=== PATIENT | female | born 1985 | race Caucasian/White ===

== ENCOUNTER 2016-07-02 15:16 | Inpatient (IN) | payer MEDICAID ==
--- NOTE | 2016-07-02 16:09 | ER Document Report ---
ED Medical Screen (RME) - General Chief Complaint: OB Problem (<20wks) Stated Complaint: LOW LEFT SIDE PELVIC PAIN Notes: 31-year-old female patient has an ultrasound that did not show IUP 2 days ago with a hCG level of 2000. She is sent here for ultrasound, hCG, wrote him evaluation and to call Dr. Heard when she is seen. She is having some pelvic discomfort more on the left. I have greeted and performed a rapid initial assessment of this patient. A comprehensive ED assessment and evaluation of the patient, analysis of test results and completion of the medical decision making process will be conducted by additional ED providers. TRAVEL OUTSIDE OF THE [place] IN LAST 30 DAYS: No - Related Data Allergies/Adverse Reactions: iodine [Iodine] Allergy (Intermediate, Verified 07/02/16 16:06) latex [Latex] Allergy (Intermediate, Verified 07/02/16 16:06) Hives ceftriaxone sodium [From Rocephin] Allergy (Mild, Verified 07/02/16 16:06) nitrofurantoin [From Macrobid] Allergy (Mild, Verified 07/02/16 16:06) nitrofurantoin macrocrystalline [From Macrobid] Allergy (Mild, Verified 16:06) Penicillins Allergy (Mild, Verified 07/02/16 16:06) metronidazole [From Flagyl] Allergy (Verified 07/02/16 16:06) Metronidazole HCl [From Flagyl] Allergy (Verified 07/02/16 16:06) Past Medical History - General Last Menstrual Period: Unknown - Past Medical History Cardiac Medical History: Reports: Hx Hypertension - during Endocrine Medical History: Reports: Hx Diabetes Mellitus Type 1 Renal/ Medical History: Denies: Hx Peritoneal Dialysis Past Surgical History: Reports: Hx Section - Immunizations Hx Diphtheria, Pertussis, Tetanus Vaccination: Yes Physical Exam - Vital signs Vitals: Temp Pulse Resp BP Pulse Ox 97.8 F 115 H 16 153/102 H 100 07/02/16 15:36 07/02/16 15:36 07/02/16 15:36 07/02/16 15:36 07/02/16 15:36 Course - Vital Signs Vital signs: Temp Pulse Resp BP Pulse Ox 97.8 F 115 H 16 153/102 H 100 07/02/16 15:36 07/02/16 15:36 07/02/16 15:36 07/02/16 15:36 07/02/16 15:36
[2016-07-02] MEDS ORDERED: DIPHENHYDRAMINE HCL 50 MG/ML VIAL IV ONE (16:11)
[2016-07-02] MEDS ORDERED: METOCLOPRAMIDE HCL INJ/PF 10 MG/2 ML SDV IV ONE (16:11)
[2016-07-02 16:56] LABS: ABSOLUTE EOSINOPHILS # (AUTO) 0.3 10^3/uL (0.0-0.6); ABSOLUTE LYMPHOCYTES (AUTO) 2.4 10^3/uL (0.5-4.7); ABSOLUTE MONOCYTES (AUTO) 0.4 10^3/uL (0.1-1.4); ABSOLUTE NEUT (AUTO) 4.6 10^3/uL (1.7-8.2); BASOPHILS % (AUTO) 0.6 % (0-2); EOSINOPHILS % (AUTO) 3.3 % (0-6); HEMATOCRIT 42.3 % (36.0-47.0); HEMOGLOBIN 14.7 g/dL (12.0-15.5); HGB HCT DIFFERENCE 1.8; LYMPHOCYTES % (AUTO) 31.1 % (13-45); MEAN CORPUSCULAR HEMOGLOBIN 31.3 pg (27.0-33.4); MEAN CORPUSCULAR HGB CONC 34.8 g/dL (32.0-36.0); MEAN CORPUSCULAR VOLUME 90 fl (80-97); MONOCYTES % (AUTO) 4.8 % (3-13); RED CELL DISTRIBUTION WIDTH 14.5 % (11.5-14.0); SEGMENTED NEUTROPHILS % (AUTO) 60.2 % (42-78); WHITE BLOOD COUNT 7.6 10^3/uL (4.0-10.5)
[2016-07-02 17:15] LABS: ALANINE AMINOTRANSFERASE 37 U/L (9-52); ALBUMIN 4.7 g/dL (3.5-5.0); ALKALINE PHOSPHATASE 83 U/L (38-126); ANION GAP 16 (5-19); ASPARTATE AMINO TRANSFERASE 22 U/L (14-36); BILIRUBIN,DIRECT 0.4 mg/dL (0.0-0.4); BILIRUBIN,TOTAL 0.7 mg/dL (0.2-1.3); BLOOD UREA NITROGEN 15 mg/dL (7-20); CALCIUM 10.5 mg/dL (8.4-10.2); CARBON DIOXIDE 28 mmol/L (22-30); CHLORIDE 100 mmol/L (98-107); CREATININE RESULT 0.67 mg/dL (0.52-1.25); GLUCOSE 84 mg/dL (75-110); POTASSIUM 4.2 mmol/L (3.6-5.0); SODIUM 143.7 mmol/L (137-145); TOTAL PROTEIN 8.3 g/dL (6.3-8.2)
[2016-07-02] MEDS ORDERED: MORPHINE SULFATE 10 MG/ML INJ IV ONE (18:39)
--- NOTE | 2016-07-02 18:57 | ER Document Report ---
ED GI/ - General Chief Complaint: OB Problem (<20wks) Stated Complaint: LOW LEFT SIDE PELVIC PAIN Notes: Patient is here because she's having abdominal pain and may have an ectopic . Patient was seen earlier this week with a quantitative hCG of about 2000 and ultrasound was not able to identify a anywhere. She has had continued increase gradually of her quantitative hCG and increasing pain and was referred in for a another evaluation and ultrasound. Patient is complaining of pain all over her entire abdomen. No nausea or vomiting or diarrhea. No fevers. By dates, patient should be about 6 weeks . TRAVEL OUTSIDE OF THE [place] IN LAST 30 DAYS: No - Related Data Allergies/Adverse Reactions: iodine [Iodine] Allergy (Intermediate, Verified 07/02/16 16:06) latex [Latex] Allergy (Intermediate, Verified 07/02/16 16:06) Hives ceftriaxone sodium [From Rocephin] Allergy (Mild, Verified 07/02/16 16:06) nitrofurantoin [From Macrobid] Allergy (Mild, Verified 07/02/16 16:06) nitrofurantoin macrocrystalline [From Macrobid] Allergy (Mild, Verified 16:06) Penicillins Allergy (Mild, Verified 07/02/16 16:06) metronidazole [From Flagyl] Allergy (Verified 07/02/16 16:06) Metronidazole HCl [From Flagyl] Allergy (Verified 07/02/16 16:06) Past Medical History - General Last Menstrual Period: Unknown - Social History Smoking Status: Unknown if Ever Smoked Family History: Reviewed & Not Pertinent Patient has suicidal ideation: No Patient has homicidal ideation: No - Past Medical History Cardiac Medical History: Reports: Hx Hypertension - during Endocrine Medical History: Reports: Hx Diabetes Mellitus Type 1 Past Surgical History: Reports: Hx Section - Immunizations Hx Diphtheria, Pertussis, Tetanus Vaccination: Yes Review of Systems - Review of Systems Notes: REVIEW OF SYSTEMS: CONSTITUTIONAL : Denies fever. EENT: Denies eye, ear, nose or mouth or throat pain or other symptoms. CARDIOVASCULAR: Denies chest pain. RESPIRATORY: Denies cough, chest congestion, or shortness of breath. GASTROINTESTINAL: See history of present illness. GENITOURINARY: Denies difficulty or painful urinating, urinary frequency, blood in urine. MUSCULOSKELETAL: Denies back or neck pain. Denies joint pain or swelling. SKIN: Denies rash or skin lesions. NEUROLOGICAL: Denies LOC or altered mental status. Denies headache. Denies sensory loss or motor deficits. ALL OTHER SYSTEMS REVIEWED AND NEGATIVE. Physical Exam - Vital signs Vitals: Temp Pulse Resp BP Pulse Ox 97.8 F 115 H 16 153/102 H 100 07/02/16 15:36 07/02/16 15:36 07/02/16 15:36 07/02/16 15:36 07/02/16 15:36 Interpretation: Hypertensive - Mild, Tachycardic - Notes Notes: PHYSICAL EXAMINATION: GENERAL: Well-appearing, in no acute distress. HEAD: Atraumatic, normocephalic. NECK: Normal range of motion, supple. LUNGS: Breath sounds clear and equal bilaterally. HEART: Regular rate and rhythm without murmurs. ABDOMEN: Soft, generalized tenderness of the lower half of the abdomen. Not guarding, however. No masses felt. BACK: No tenderness throughout entire back. EXTREMITIES: Normal range of motion without pain. SKIN: Warm, dry, no rashes. Course - Re-evaluation Re-evalutation: 07/02/16 19:[address] Heard, who will be seeing the patient with plan to take her to the OR. Pain medications ordered. Nothing by mouth. - Vital Signs Vital signs: Temp Pulse Resp BP Pulse Ox 98.9 F 104 H 18 170/94 H 98 07/02/16 18:15 07/02/16 18:15 07/02/16 18:15 07/02/16 18:15 07/02/16 18:15 - Laboratory Result Diagrams: 07/02/16 16:36 07/02/16 16:36 Laboratory results interpreted by me: 07/02/16 07/02/16 16:36 16:36 RDW 14.5 H Calcium 10.5 H Total Protein 8.3 H Beta HCG, Quant 2832.70 H 07/02/16 19:00 Increasing quantitative hCG noted. - Diagnostic Test Radiology reviewed: Image reviewed, Reports reviewed - Ultrasound shows an early ectopic around the right ovary. There is no free fluid or blood present. Discharge - Discharge Clinical Impression: Ectopic Qualifiers: Location of ectopic : ovarian Intrauterine status: without intrauterine Qualified Code(s): O00.20 - Ovarian without intrauterine Condition: Stable Disposition: ADMITTED INPATIENT Admitting Provider: [facility] Admitted: OR
[2016-07-02] MEDS ORDERED: HYDROMORPHONE HCL INJ/PF 2 MG/ML AMPULE IV ONE ×2 (19:46→21:55)
[2016-07-02] MEDS ORDERED: MORPHINE SULFATE 10 MG/ML INJ ONE (19:53)
[2016-07-02] MEDS ORDERED: ONDANSETRON HCL INJ/PF 4 MG/2 ML SDV IV PRN (19:55)
[2016-07-02] MEDS ORDERED: HYDROMORPHONE HCL INJ/PF 2 MG/ML AMPULE ONE (19:56)
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
[2016-07-02] MEDS ORDERED: GLUCAGON,HUMAN RECOMB 1 MG INJ IM PRN (21:30)
[2016-07-02] MEDS ORDERED: DEXTROSE 40% GEL 15 GM TUBE PO PRN ×2 (21:30)
[2016-07-02] MEDS ORDERED: DEXTROSE 50%-WATER 25 GM/50 ML DISP.SYRIN IV PRN ×2 (21:30)
[2016-07-02] MEDS ORDERED: INSULIN DETEMIR 100 UNIT/ML 3 ML PEN SUBCUT ONE (22:30)
[2016-07-03] MEDS ORDERED: HYDROMORPHONE HCL INJ/PF 2 MG/ML AMPULE IV ONE ×2 (01:30→09:00)
[2016-07-03] MEDS: RINGERS SOLUTION,LACTATED 1,000 ML IV PRN ×2 (01:50→21:23)
[2016-07-03] MEDS: NIFEDIPINE 30 MG TAB.ER.24 PO SCH ×2 (02:07→11:03)
[2016-07-03 07:53] LABS: ABSOLUTE EOSINOPHILS # (AUTO) 0.1 10^3/uL (0.0-0.6); ABSOLUTE LYMPHOCYTES (AUTO) 1.4 10^3/uL (0.5-4.7); ABSOLUTE MONOCYTES (AUTO) 0.2 10^3/uL (0.1-1.4); ABSOLUTE NEUT (AUTO) 5.6 10^3/uL (1.7-8.2); BASOPHILS % (AUTO) 0.7 % (0-2); EOSINOPHILS % (AUTO) 1.5 % (0-6); HEMATOCRIT 39.3 % (36.0-47.0); HEMOGLOBIN 13.6 g/dL (12.0-15.5); HGB HCT DIFFERENCE 1.5; LYMPHOCYTES % (AUTO) 19.2 % (13-45); MEAN CORPUSCULAR HEMOGLOBIN 31.6 pg (27.0-33.4); MEAN CORPUSCULAR HGB CONC 34.7 g/dL (32.0-36.0); MEAN CORPUSCULAR VOLUME 91 fl (80-97); MONOCYTES % (AUTO) 3.2 % (3-13); RED BLOOD COUNT 4.31 10^6/uL (3.72-5.28); RED CELL DISTRIBUTION WIDTH 14.1 % (11.5-14.0); SEGMENTED NEUTROPHILS % (AUTO) 75.4 % (42-78); WHITE BLOOD COUNT 7.4 10^3/uL (4.0-10.5)
--- NOTE | 2016-07-03 07:54 | PDOC CONSULTATION ---
Consultation Consult Date: 07/03/16 Attending physician:: MACY GIFFORD Consult reason:: manage HTN, hypothyroid, DM History of Present Illness Admission Date/PCP: 07/02/16 19:34 JACINTO ALICEA MD Patient complains of: ABD pain History of Present Illness: MIGUELINA CHRISTINE is a 31 year old female G 9 P 0362 (see ob history) who presents to the ER with Left lower quadrant pain. She was seen yesterday in the office and concern for ectopic reviewed and options reviewed. Pt declined MTX in the office yesterday but did have left adnexal and incisional pain. She had 9/10 pain last night but did not come in and called the office today. When she called the office today she reported that she was out running errands with her kids and felt fine. However, she called L&D at [id number] and stated her pain was worse and was instructed to come in to the ER for eval. US in the Office on wednesday with BHCG of 2061 showed no e/o intrauterine and no extrauterine and no hemoperitoneum. BHCG on 06/24 was 1041 - - - 06/29 was 2062 - - - 06/30 was 2097 and on 07/01 was 2338. CMP done in the office was normal except for hypoglycemia. TSH on 06/24 was 1.910. She is O neg. Patient has been discussed with Dr. Gifford, along with floor nursing staff. Patient has been experiencing occasional nausea and vomiting over the last day or so. No fever or chills. She is currently resting quietly, awaiting surgery for her ectopic . Laboratory results are listed in [facility] and are reviewed. X-ray summary results are listed below, with full report(s) reviewed. . Social history/personal habits: . 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 No use of alcohol tobacco or illicit drugs. Allergies/adverse reactions are listed in [facility] and are reviewed. Home medications Home medications initially autopopulated into [employer] may not accurately reflect patient's true medications, dosages, and/or frequencies. applied science and technologies dean has reconciled medications. REVIEW OF SYSTEMS: Constitutional: No fever or chills. Eyes: Wears glasses. ENT: No swallowing problems or complaints. No hearing problems or complaints. Pulmonary: No current complaints. Cardiovascular: No current complaints, including chest pain. Gastrointestinal: See history and present illness. Skin: No current complaints, including rashes. Hematologic: No unusual easy bruising or bleeding. Neurologic: No current complaints, including numbness or tingling. Musculoskeletal: No current complaints, including painful joints. Psychiatric: No current complaints, including anxiety or depression. Endocrine: No current complaints, including polyuria. Genitourinary: See history and present illness. PHYSICAL EXAMINATION: 5 feet 3 inches tall. 107.96 kg. BMI 42.2 kg/m.Temperature 98.3. Pulse 90 and regular. Blood pressure 143/92. Respirations are 18 and unlabored. 97% saturation on room air. Female floor nurse Doreen is present. is present; patient approves. Obese somewhat chronically ill-appearing female who nevertheless appears approximately her stated age. Pleasant awake alert and cooperative. No obvious distress other than somewhat anxious. No agitation. Skin is warm and dry. No grossly obvious evidence of rash in areas of skin examined. No subcutaneous nodules palpated. ENT: Hearing grossly normal to normal conversation. Tongue midline on protrusion pink and slightly tacky. Eyes: No scleral icterus. Pupils equal and reactive to light at 4 mm. [place] conjunctivae. Neck is supple and nontender to gentle active range of motion and palpation. Midline trachea. No palpable thyroid nodule mass enlargement or tenderness. Lymphatic: No palpable cervical or clavicular nodes. Neck and lymphatic exams limited by patient body habitus. Psychiatric: Reasonable insight into acute and chronic medical issues. Oriented to time location and why here. Lungs: Auscultation reveals clear and equal breath sounds bilaterally. No use of accessory respiratory muscles. Cardiovascular: Heart regular rate and rhythm, without gallop murmur or rub. No carotid or abdominal aortic bruits. No ankle or pedal edema. Faintly palpable dorsalis pedis pulses. Abdomen: soft, obese, distended with positive bowel sounds. Mild diffuse tenderness, without evidence of guarding or peritoneal signs. Unable to adequately evaluate abdomen for masses or organomegaly due to body habitus and discomfort . Extremities: Feet are warm and dry. No calf tenderness to compression. No grossly obvious visual evidence of calf swelling. Gentle manipulation of lower extremities fails to reveal any obvious evidence of injury or instability to knees hips or ankles. Neurologic: Moves upper extremities grossly normally. Patellar reflexes absent. Absent Babinski. Light touch is intact at feet. Dorsiflexion and plantarflexion of feet 5 / 5 and symmetric. Past Medical History Cardiac Medical History: Reports: Hypertension Denies: Congestive Heart Failure, DVT, Myocardial Infarction, Hyperlipidema, Pulmonary Embolism Pulmonary Medical History: Reports: None Denies: Asthma, Chronic Obstructive Pulmonary Disease (COPD) Neurological Medical History: Reports: None Denies: Hemorrhagic CVA, Ischemic CVA, Seizures Endocrine Medical History: Reports: Diabetes Mellitus Type 1, Hypothyroidism Denies: Diabetes Mellitus Type 2, Hyperthyroidism Renal/ Medical History: Reports: Other - Occasional UTI Malignancy Medical History: Reports: None GI Medical History: Denies: Cirrhosis, Gastroesophageal Reflux Disease, Hepatitis, Peptic Ulcer Disease Musculoskeltal Medical History: Reports: None Denies: Arthritis Skin Medical History: Reports: None Psychiatric Medical History: Reports: None Denies: Alcohol Dependency, Depression, General Anxiety Disorder, Substance Abuse, Tobacco Dependency Traumatic Medical History: Reports: None Hematology: Reports: None Infectious Medical History: Reports: None Denies: Hepatitis B, Hepatitis C Past Surgical History Past Surgical History: Reports: Section Social History Information Source: Patient, Emergency Med Personnel, [facility] Records Lives with: Spouse/Significant other Smoking Status: Never Smoker Frequency of Alcohol Use: None Hx Recreational Drug Use: No Drugs: None Hx Prescription Drug Abuse: No - Advance Directive Resuscitation Status: Full Code Surrogate healthcare decision maker:: Family History Family History: Reviewed & Not Pertinent Parental Family History Reviewed: Yes - uncertain health status of father. Mother with multiple health problems. Children Family History Reviewed: Yes - Child with congenital heart disease. Sibling(s) Family History Reviewed.: Yes - Sister hypothyroid. Medication/Allergy Home Medications: Insulin Aspart [Novolog Flexpen] 8 units SUBCUT WBRKFST 07/02/16 Insulin Aspart [Novolog Flexpen] 8 units SUBCUT WLUNCH 07/02/16 Insulin Aspart [Novolog Flexpen] 10 units SUBCUT WSUPPER 07/02/16 Insulin Detemir [Levemir Flextouch] 50 units SUBCUT QAM 07/02/16 Insulin Detemir [Levemir Flextouch] 60 units SUBCUT QPM 07/02/16 Levothyroxine Sodium [Synthroid 0.15 mg Tablet] 150 mcg PO QAM 07/02/16 Nifedipine [Nifedipine ER] 30 mg PO QAM 07/02/16 Nifedipine [Nifedipine ER] 30 mg PO QHS 07/02/16 Pediatric Multivit Comb #25/FA [[place]stones Multivit Chew Tab] 1 tab PO DAILY Fluconazole [Diflucan] 1 tab PO DAILY 07/04/16 Ondansetron HCl [Zofran 8 mg Tablet] 1 tab PO TID 07/04/16 Oxycodone HCl/Acetaminophen [Percocet 5-325 mg Tablet] 1 tab PO QID 07/04/16 Oxycodone HCl/Acetaminophen [Percocet 5-325 mg Tablet] 2 tab PO QID 07/04/16 Allergies/Adverse Reactions: iodine [Iodine] Allergy (Intermediate, Verified 07/02/16 16:06) latex [Latex] Allergy (Intermediate, Verified 07/02/16 16:06) Hives ceftriaxone sodium [From Rocephin] Allergy (Mild, Verified 07/02/16 16:06) nitrofurantoin [From Macrobid] Allergy (Mild, Verified 07/02/16 16:06) nitrofurantoin macrocrystalline [From Macrobid] Allergy (Mild, Verified 16:06) Penicillins Allergy (Mild, Verified 07/02/16 16:06) metronidazole [From Flagyl] Allergy (Verified 07/02/16 16:06) Metronidazole HCl [From Flagyl] Allergy (Verified 07/02/16 16:06) Physical Exam Vital Signs: Temp Pulse Resp BP Pulse Ox 98.3 F 90 18 143/92 H 97 07/03/16 04:48 07/03/16 04:48 07/03/16 04:48 07/03/16 04:48 07/03/16 04:48 Intake & Output 07/02/16 07/03/16 07/04/16 00:59 00:59 00:59 Intake Total 500 Balance 500 Results Impressions: Obstetrics Ultrasound 07/02/16 16:03 IMPRESSION: Small hypoechoic structure measured at 12.7 mm in size adjacent to the right ovary. Ectopic cannot be excluded. Followup beta HCG and ultrasound is recommended. Assessment & Plan - Diagnosis (1) HTN (hypertension) Qualifiers: Hypertension type: essential hypertension Qualified Code(s): I10 - Essential (primary) hypertension Is this a current diagnosis for this admission?: YesPlan: Resume home medications as appropriate once these have been determined and reviewed. (2) Ectopic Qualifiers: Location of ectopic : unspecified location Intrauterine status: without intrauterine Qualified Code(s): O00.90 - Unspecified ectopic without intrauterine Is this a current diagnosis for this admission?: YesPlan: Management by Dr. Gifford. (3) Hypothyroidism Qualifiers: Hypothyroidism type: unspecified Qualified Code(s): E03.9 - Hypothyroidism, unspecified Is this a current diagnosis for this admission?: YesPlan: Resume home medications as appropriate once these have been determined and reviewed. (4) Insulin dependent diabetes mellitus Is this a current diagnosis for this admission?: YesPlan: Resume home medications as appropriate once these have been determined and reviewed. Diabetic cardiac diet. Accu-Cheks with appropriate sliding scale coverage.
[2016-07-03] MEDS ORDERED: INSULIN ASPART 8 UNIT SUBCUT SCH ×2 (08:00→12:00)
[2016-07-03] MEDS ORDERED: INSULIN LISPRO 100 UNIT/ML 3 ML VIAL SUBCUT SCH ×3 (08:00→17:00)
[2016-07-03] MEDS ORDERED: BUPIVACAINE HCL 0.25 % INJ/PF (2.5 MG/1 ML) 30 ML VIAL ONE (08:50)
[2016-07-03] MEDS ORDERED: ONDANSETRON HCL INJ/PF 4 MG/2 ML SDV IV ONE (09:00)
[2016-07-03] MEDS ORDERED: MIDAZOLAM 2 MG/2 ML INJ ONE (09:26)
[2016-07-03] MEDS ORDERED: FENTANYL CITRATE INJ/PF 250 MCG/5 ML AMPULE ONE (09:26)
[2016-07-03] MEDS ORDERED: PROPOFOL INJ 200 MG/20 ML VIAL IV ONE (09:27)
[2016-07-03] MEDS ORDERED: IBUPROFEN INJ 800 MG/8 ML VIAL IV ONE (09:27)
[2016-07-03] MEDS ORDERED: METOCLOPRAMIDE HCL INJ/PF 10 MG/2 ML SDV ONE (09:45)
[2016-07-03] MEDS ORDERED: FAMOTIDINE INJ/PF 20 MG/2 ML SDV IV ONE (09:46)
[2016-07-03] MEDS ORDERED: SCOPOLAMINE HYDROBROMIDE 1.5 MG PATCH.TD72 ONE (09:46)
[2016-07-03] MEDS ORDERED: LEVOTHYROXINE SODIUM 0.15 MG TABLET PO SCH (10:00)
[2016-07-03] MEDS ORDERED: CLINDAMYCIN 900 MG/D5W RTU 50 ML IV ONE (10:33)
[2016-07-03] MEDS ORDERED: GENTAMICIN SULFATE INJ 80 MG/2 ML VIAL ONE (10:33)
[2016-07-03] MEDS ORDERED: FENTANYL CITRATE INJ/PF 100 MCG/2 ML AMPUL IV PRN ×3 (11:16)
[2016-07-03] MEDS ORDERED: MORPHINE SULFATE 10 MG/ML INJ IV PRN (11:16)
[2016-07-03] MEDS ORDERED: OXYCODONE-ACETAMINOPHEN 5-325 MG TABLET PO PRN ×2 (11:16)
[2016-07-03] MEDS ORDERED: DIPHENHYDRAMINE HCL 50 MG/ML VIAL IV PRN (11:16)
[2016-07-03] MEDS ORDERED: ONDANSETRON HCL INJ/PF 4 MG/2 ML SDV IV PRN ×2 (11:16→13:23)
[2016-07-03] MEDS ORDERED: MEPERIDINE HCL/PF INJ 25 MG/1 ML DISP.SYRIN IV PRN (11:16)
[2016-07-03] MEDS ORDERED: PROMETHAZINE HCL INJ 25 MG/1 ML VIAL IV PRN ×2 (11:16)
[2016-07-03] MEDS ORDERED: KETOROLAC TROMETHAMINE INJ/PF 30 MG/1 ML SDV ONE (12:28)
[2016-07-03] MEDS ORDERED: FENTANYL CITRATE INJ/PF 100 MCG/2 ML AMPUL ONE (12:29)
[2016-07-03] MEDS ORDERED: ACETAMINOPHEN 100 ML IV ONE (12:35)
[2016-07-03] MEDS ORDERED: INSULIN LISPRO 100 UNIT/ML 3 ML VIAL ONE ×3 (12:45→13:29)
[2016-07-03] MEDS ORDERED: PROMETHAZINE HCL INJ 25 MG/1 ML VIAL ONE (12:54)
--- NOTE | 2016-07-03 13:08 | OPERATIVE REPORT E ---
Operative Report NAME: MIGUELINA CHRISTINE : 1985 AGE: 31Y DATE OF SURGERY: ROOM: 214 PREOPERATIVE DIAGNOSIS: Right ectopic and desire for permanent sterilization with bilateral salpingectomy. POSTOPERATIVE DIAGNOSIS: Right ectopic and desire for permanent sterilization with bilateral salpingectomy. OPERATION: Laparoscopic bilateral salpingectomy with removal of right ectopic . SURGEON: ЕКАТЕРИНА MACK M.D. JOURNEYMAN MECHANIC: ROXANN ANESTHESIA: General endotracheal ESTIMATED BLOOD LOSS: 10 mL. URINE OUTPUT: 400 mL. SPECIMEN TO PATHOLOGY: Bilateral fallopian tube. The right distal tube contained the ectopic . FINDINGS: The patient had fungal changes underneath her pannus and in the vagina. She had a very thick abdominal wall and a marked amount of intraperitoneal fatty tissue. The uterus appeared normal. There was a small amount of blood in the pelvis. The left tube and ovary appeared normal. The right distal tube contained the ectopic. The right ovary appeared normal. DESCRIPTION OF PROCEDURE: After discussing risks, benefits, and alternatives of the procedure and obtaining informed consent, patient was taken to the operating room where general anesthesia was achieved. She was positioned in the dorsal lithotomy position, prepped and draped in the usual standard fashion. A Gonzalez catheter was placed. The Medikly uterine manipulator was placed for uterine manipulation. Attention was then turned to the abdomen. A 10-mm incision was placed in the superior aspect of the umbilical fold. The fascia was grasped with Nata's. The fascia was incised and the peritoneal cavity entered under direct visualization. A long Origin trocar was used and the balloon insufflated. The abdomen was insufflated. The camera was placed. There was difficulty with some intraperitoneal fat falling down over this trocar however we were initially able to place a left lower quadrant trocar through intraperitoneal fat. There was no bowel within the intraperitoneal fat. This was assured by taking the camera superior to the trocar site. Next, it was realized that the long Origin was not long enough to maintain pneumoperitoneum as the fatty tissue kept slipping over the end of it. Therefore a long straight trocar, which was about one inch longer, was called for. With this we were able to maintain an adequate pneumoperitoneum and the right lower quadrant trocar was placed under direct visualization. Each of the port sites had been premedicated with 0.25% Marcaine. Again in the right lower quadrant, the trocar went through some intraperitoneal fat but again this was traced and there was no bowel up within that. The distal right tube was grasped with grasper and a LigaSure device was used to perform the salpingectomy in the standard fashion. This was removed through the umbilical port. The camera was replaced and the salpingectomy was performed in a similar fashion on the right by elevating it above the bowel and using the LigaSure to undermine the tube and excise it with coagulation and cut. Excellent was observed at both. The pelvis was irrigated and hemostasis assured. The trocars were removed assuring that there was no bleeding through the peritoneal fat. The trocars in the right and left lower quadrants were removed and observed that there was no bleeding at either of these sites, even under low pressure. Next the abdomen was desufflated and the umbilical trocar removed. The fascia was closed at the umbilicus with the 0 Vicryl in an interrupted fashion. The skin was closed with 3-0 Monocryl in subcuticular fashion. Dermabond was placed over the right and left lower quadrant trocar sites. OpSite dressing with a 2 x 2 under it was placed at the umbilical port site. The Hulka manipulator was removed and hemostasis assured. The patient was taken out of dorsal lithotomy, extubated, and to recovery in stable condition. All sponge, needle, lap, and instrument counts were correct x2. DICTATING PHYSICIAN: ЕКАТЕРИНА MACK M.D. [id number] PHY#: [id number] ID: [id number] JOB#: [id number] ACCT: [id number] cc:ЕКАТЕРИНА MACK M.D. >
[2016-07-03] MEDS ORDERED: HYDROMORPHONE HCL INJ/PF 2 MG/ML AMPULE IV PRN ×2 (13:24→13:25)
[2016-07-03] MEDS ORDERED: OXYCODONE HCL IR 5 MG TABLET PO PRN ×2 (13:25→13:26)
[2016-07-03] MEDS ORDERED: SUCCINYLCHOLINE CHLORIDE INJ 200 MG/10 ML VIAL ONE (14:17)
[2016-07-03] MEDS ORDERED: PHENYLEPHRINE HCL INJ/PF 10 MG/1 ML SDV ONE (14:17)
[2016-07-03] MEDS ORDERED: VECURONIUM BROMIDE INJ 10 MG VIAL IV ONE (14:17)
[2016-07-03] MEDS ORDERED: NEOSTIGMINE METHYLSULFATE 10 MG/10 ML VIAL ONE (14:17)
[2016-07-03] MEDS ORDERED: DEXAMETHASONE SOD PHOSPHATE INJ 4 MG/1 ML VIAL ONE (14:17)
[2016-07-03] MEDS ORDERED: ONDANSETRON HCL INJ/PF 4 MG/2 ML SDV ONE (14:17)
[2016-07-03] MEDS ORDERED: LIDOCAINE 2% INJ-PF (20 MG/ML) 10 ML AMPUL ONE (14:17)
[2016-07-03] MEDS ORDERED: GLYCOPYRROLATE INJ 0.4 MG/2 ML VIAL ONE (14:17)
[2016-07-03] MEDS ORDERED: (PENDING PHARMACY ID) (Insulin Aspart [Novolog Flexpen] 10 UNITS) SUBCUT SCH (17:00)
[2016-07-03] MEDS ORDERED: INSULIN DETEMIR 100 UNIT/ML 3 ML PEN SUBCUT SCH (18:00)
[2016-07-03] MEDS: KETOROLAC TROMETHAMINE INJ/PF 30 MG/1 ML SDV IV SCH (21:24)
[2016-07-03] MEDS ORDERED: NIFEDIPINE 30 MG TAB.ER.24 PO SCH (22:00)
[2016-07-04] MEDS: KETOROLAC TROMETHAMINE INJ/PF 30 MG/1 ML SDV IV SCH (06:11)
[2016-07-04] MEDS ORDERED: NIFEDIPINE 30 MG TAB.ER.24 PO SCH (08:00)
[2016-07-04] MEDS ORDERED: LEVOTHYROXINE SODIUM 0.15 MG TABLET PO SCH (08:00)
[2016-07-04] MEDS ORDERED: INSULIN DETEMIR 100 UNIT/ML 3 ML PEN SUBCUT SCH (08:00)
[2016-07-04 09:04] VITALS: BP 146/90
[2016-07-04] MEDS ORDERED: LANSOPRAZOLE 30 MG TAB.RAP.DR PO ONE (09:15)
--- NOTE | 2016-07-04 09:38 | DISCHARGE SUMMARY E ---
Discharge Summary NAME: NIRMALA CHRISTINE : 1985 AGE: 31Y ADMITTED: 07/02/2016 DISCHARGED: 07/04/2016 INDICATION FOR ADMISSION: Ectopic in patient with multiple medical problems. HOSPITAL COURSE: Nirmala is a 31-year-old female who was admitted with pelvic pain and right ectopic . She had multiple looses associated with her type 1 diabetes and chronic hypertension. She desired permanent sterilization and surgical treatment for her ectopic. Over the course of the evening on the first night, internal medicine evaluated her and cleared her for surgery. She was managed by them for her diabetes, hypertension, and hypothyroidism. She was taken to the operating room on 07/03/2016 and underwent laparoscopic bilateral salpingectomy. She had a right ectopic noted at the time. Of note, fungal changes are noted under the pannus and in her vaginal region which was quite impressive. Postoperatively she was kept through the following evening to optimize glycemic control as her perioperative sugars were around 250. She, at the time of discharge, had improved glycemic control. She will be discharged home on her usual Levemir, Synthroid, and Procardia doses. By the time of discharge, she was ambulating and tolerating p.o. She had adequate pain control with oral medications and was passing flatus. DISCHARGE DIAGNOSES: 1. Right ectopic . 2. Undesired fertility with desire for permanent sterilization. 3. Vaginal candidiasis and intertrigo. 4. Chronic hypertension. 5. Type 1 diabetes. 6. Hypothyroidism. DISCHARGE MEDICATIONS: Patient will continue usual home meds. She was also given a script for Zofran 8 mg 1 p.o. t.i.d. p.r.n., #10, no refills; Percocet 1-2 p.o. 4 times a day p.r.n., #30, no refills; Motrin 800 mg 1 p.o. t.i.d. p.r.n., #30, no refills; and Diflucan 150 mg p.o. daily for 10 days. PLAN: She will follow up with me in 1 week or sooner should problems arise. She was advised no lifting over 20 pounds and pelvis rest. DICTATING PHYSICIAN: ЕКАТЕРИНА MACK M.D. [id number] PHY#: [id number] ID: [id number] JOB#: [id number] ACCT: [id number] cc:MACY GIFFORD M.D., JENNIFER M.D. >
[2016-07-04] MEDS ORDERED: FLUCONAZOLE 100 MG TABLET PO SCH (10:00)
--- NOTE | 2016-07-05 07:23 | PDOC PROGRESS REPORT ---
Subjective Progress Note for:: 07/04/16 Subjective:: The patient denies any nausea, vomiting, diarrhea, shortness of breath, dizziness, chest pain, heart palpitations, fevers, or chills. The patient has remained afebrile. Blood pressures have been in a good range. When prompted the patient voices no other concerns at this time. Physical Exam Vital Signs: Temp Pulse Resp BP Pulse Ox 97.8 F 95 18 146/90 H 96 07/04/16 08:56 07/04/16 08:56 07/04/16 08:56 07/04/16 08:56 07/04/16 08:56 Intake & Output 07/03/16 07/04/16 07/05/16 23:59 23:59 23:59 Intake Total 7650 Output Total 410 Balance 7240 General appearance: PRESENT: no acute distress, well-developed, well-nourished Head exam: PRESENT: atraumatic, normocephalic Eye exam: PRESENT: conjunctiva pink, EOMI, PERRLA. ABSENT: scleral icterus Ear exam: PRESENT: normal external ear exam Mouth exam: PRESENT: moist, tongue midline Neck exam: ABSENT: carotid bruit, JVD, lymphadenopathy, thyromegaly Respiratory exam: PRESENT: clear to auscultation rachael. ABSENT: rales, rhonchi, wheezes Cardiovascular exam: PRESENT: RRR. ABSENT: diastolic murmur, rubs, systolic murmur Pulses: PRESENT: normal dorsalis pedis pul Vascular exam: PRESENT: normal capillary refill GI/Abdominal exam: PRESENT: normal bowel sounds, soft. ABSENT: distended, guarding, mass, organolmegaly, rebound, tenderness Rectal exam: PRESENT: deferred Extremities exam: PRESENT: full ROM. ABSENT: calf tenderness, clubbing, pedal edema Neurological exam: PRESENT: alert, awake, oriented to person, oriented to place , oriented to time, oriented to situation, CN II-XII grossly intact. ABSENT: motor sensory deficit Psychiatric exam: PRESENT: appropriate affect, normal mood. ABSENT: homicidal ideation, suicidal ideation Skin exam: PRESENT: dry, intact, warm. ABSENT: cyanosis, rash Results Laboratory Results: 07/03/16 07:39 Impressions: Obstetrics Ultrasound 07/02/16 16:03 IMPRESSION: Small hypoechoic structure measured at 12.7 mm in size adjacent to the right ovary. Ectopic cannot be excluded. Followup beta HCG and ultrasound is recommended. Assessment & Plan - Diagnosis (1) Ectopic Qualifiers: Location of ectopic : unspecified location Intrauterine status: without intrauterine Qualified Code(s): O00.90 - Unspecified ectopic without intrauterine Is this a current diagnosis for this admission?: YesPlan: Management as per CHANGE CONSULTANT (2) HTN (hypertension) Qualifiers: Hypertension type: essential hypertension Qualified Code(s): I10 - Essential (primary) hypertension Is this a current diagnosis for this admission?: YesPlan: Habit in a good range will continue current medications (3) Hypothyroidism Qualifiers: Hypothyroidism type: unspecified Qualified Code(s): E03.9 - Hypothyroidism, unspecified Is this a current diagnosis for this admission?: YesPlan: Will continue home medications. (4) Insulin dependent diabetes mellitus Is this a current diagnosis for this admission?: YesPlan: De León Kalyani as well as sliding scale coverage (5) Obesity Qualifiers: Obesity type: due to excess calories Obesity severity: morbid Qualified Code(s): E66.01 - Morbid (severe) obesity due to excess calories Is this a current diagnosis for this admission?: Yes - Time Time Spent with patient: 15-24 minutes Medications reviewed and adjusted accordingly: Yes Anticipated discharge: Home Within: Other
== END 2016-07-04 09:20 | disposition home or self-care (01) | DRG 777 ==
LOC: ER 15:16 → EH 19:34 → 2S 07-03 00:51
PROVIDERS: ADMIT Specialist; ATTEND Specialist
PROC: 10T24ZZ Resection of Products of Conception, Ectopic, Percutaneous Endoscopic Approach (ICD-10-PCS; 2016-07-03)
PROC: 0UB74ZZ Excision of Bilateral Fallopian Tubes, Percutaneous Endoscopic Approach (ICD-10-PCS; principal; 2016-07-03 10:30)
DX: O00.90 Unspecified ectopic pregnancy without intrauterine pregnancy (principal); Z68.41 Body mass index [BMI] 40.0-44.9, adult; O24.011 Pre-existing type 1 diabetes mellitus, in pregnancy, first trimester; O98.811 Other maternal infectious and parasitic diseases complicating pregnancy, first trimester; O34.211 Maternal care for low transverse scar from previous cesarean delivery; O99.281 Endocrine, nutritional and metabolic diseases complicating pregnancy, first trimester; O99.211 Obesity complicating pregnancy, first trimester; N85.8 Other specified noninflammatory disorders of uterus; E03.9 Hypothyroidism, unspecified; E66.01 Morbid (severe) obesity due to excess calories; E10.9 Type 1 diabetes mellitus without complications; B37.3 Candidiasis of vulva and vagina; L30.4 Erythema intertrigo; Z79.4 Long term (current) use of insulin; Z3A.01 Less than 8 weeks gestation of pregnancy; Z30.2 Encounter for sterilization
CPT/HCPCS: 36415; 76817; 80053; 82962; 840; 84702; 85025; 86900; 86901; 88302; 88305; 96374; 96375; 99285; J0131; J0330; J1100; J1170; J1200; J1580; J1741; J1815; J1885; J2250; J2270; J2370; J2405; J2550; J2704; J2765; J3010; J3490; J7120; S0028

== ENCOUNTER 2016-10-16 13:43 | Emergency (ER) | payer MEDICAID ==
--- NOTE | 2016-10-16 15:06 | ER Document Report ---
ED Medical Screen (RME) - General Chief Complaint: Abnormal Lab Results Stated Complaint: ABNORMAL LABS Time Seen by Provider: 10/16/16 14:59 Mode of Arrival: Ambulatory Information source: Patient Notes: This is a 31-year-old female with a history of hypertension, diabetes and hypothyroidism who was referred to the emergency room for abnormal labs. The patient underwent preoperative labs for a hysterectomy (scheduled [facility]) and she was called to the ER for a potassium of 6.1. Patient recently had her lisinopril increased. Patient denies any fever, chills, nausea vomiting. Patient denies any chest pain or abdominal pain. TRAVEL OUTSIDE OF THE [place] IN LAST 30 DAYS: No - HPI Onset: Just prior to arrival Onset/Duration: Sudden Quality of pain: No pain Severity: None Pain Level: Denies Associated Symptoms: None Exacerbated by: Denies Relieved by: Supine Similar symptoms previously: No Recently seen / treated by doctor: No - Related Data Smoking: Non-smoker Frequency of alcohol use: None Drug Abuse: None Allergies/Adverse Reactions: iodine [Iodine] Allergy (Intermediate, Verified 10/16/16 13:48) latex [Latex] Allergy (Intermediate, Verified 10/16/16 13:48) Hives ceftriaxone sodium [From Rocephin] Allergy (Mild, Verified 10/16/16 13:48) nitrofurantoin [From Macrobid] Allergy (Mild, Verified 10/16/16 13:48) nitrofurantoin macrocrystalline [From Macrobid] Allergy (Mild, Verified 13:48) Penicillins Allergy (Mild, Verified 10/16/16 13:48) metronidazole [From Flagyl] Allergy (Verified 10/16/16 13:48) Metronidazole HCl [From Flagyl] Allergy (Verified 10/16/16 13:48) Past Medical History - General Information source: Patient - Social History Cigarette use (# per day): No Chew tobacco use (# tins/day): No Frequency of alcohol use: None Drug Abuse: None Lives with: Family Family history: Reviewed & Not Pertinent - Past Medical History Cardiac Medical History: Reports: Hx Hypertension Denies: Hx Atrial Fibrillation, Hx Congestive Heart Failure, Hx Coronary Artery Disease, Hx DVT, Hx Heart Attack, Hx Hypercholesterolemia, Hx Peripheral Vascular Disease, Hx Pulmonary Embolism, Hx Heart Murmur Pulmonary Medical History: Denies: Hx Asthma, Hx COPD Neurological Medical History: Denies: Hx Seizures Endocrine Medical History: Reports: Hx Diabetes Mellitus Type 1, Hx Hypothyroidism - 2010. Denies: Hx Diabetes Mellitus Type 2, Hx Graves' Disease , Hx Hyperthyroidism Renal/ Medical History: Denies: Hx Ovarian Cysts, Hx Peritoneal Dialysis, Hx Pelvic Inflammatory Disease Malignancy Medical History: Denies: Hx Breast Cancer, Hx Cervical Cancer, Hx Ovarian Cancer GI Medical History: Denies: Hx Cirrhosis, Hx Gastroesophageal Reflux Disease, Hx Hepatitis Musculoskeltal Medical History: Denies Hx Arthritis Psychiatric Medical History: Reports: Hx Depression - post - , Hx Post Traumatic Stress Disorder - NICU with daughter 2014 Denies: Hx Bipolar Disorder, Hx Schizophrenia Infectious Medical History: Denies: Hx Hepatitis Past Surgical History: Reports: Hx Section. Denies: Hx Appendectomy, Hx Bowel Surgery, Hx Cholecystectomy, Hx Coronary Artery Bypass Graft, Hx Gastric Bypass Surgery, Hx Herniorrhaphy, Hx Hysterectomy, Hx Mastectomy, Hx Pacemaker, Hx Tonsillectomy, Hx Tubal Ligation - Immunizations Hx Diphtheria, Pertussis, Tetanus Vaccination: Yes Review of Systems - Review of Systems Constitutional: denies: Chills, Fever EENT: No symptoms reported Cardiovascular: No symptoms reported Respiratory: No symptoms reported Gastrointestinal: No symptoms reported Genitourinary: No symptoms reported Female Genitourinary: No symptoms reported Musculoskeletal: No symptoms reported Skin: No symptoms reported Hematologic/Lymphatic: No symptoms reported Neurological/Psychological: No symptoms reported Physical Exam - Vital signs Vitals: Temp Pulse Resp BP Pulse Ox 98.9 F 114 H 16 151/85 H 98 10/16/16 13:48 10/16/16 13:48 10/16/16 13:48 10/16/16 13:48 10/16/16 13:48 Notes: Physical exam: GENERAL: 31-year-old female, alert and oriented 3, no acute distress HEAD: Atraumatic, normocephalic. EYES: Pupils equal round and reactive to light, extraocular movements intact, sclera anicteric, conjunctiva are normal. ENT:Moist mucous membranes. NECK: Normal range of motion, supple LUNGS: Breath sounds clear to auscultation bilaterally and equal. HEART: Regular rate and rhythm without murmurs, rubs or gallops. ABDOMEN: Soft, normoactive bowel sounds. No tenderness to palpation. No guarding, no rebound. No masses appreciated. EXTREMITIES: Normal range of motion, no pitting or edema. No clubbing or cyanosis. NEUROLOGICAL: Cranial nerves II through XII grossly intact. Normal speech, normal gait. PSYCH: Normal mood, normal affect. SKIN: Warm, Dry, normal turgor, no rashes or lesions noted. I discussed the patient's lab work with Dr. Cruz. Patient is scheduled for an outpatient hysterectomy. She does have type 1 diabetes as well as hypertension and Dr. Cruz had increased her lisinopril recently to better control her blood pressure. There was concern about a lab revealing hyperkalemia, so we have repeated those labs today and the potassium was 4.9. Patient's renal function is normal at this point. The plan will be to continue the lisinopril as prescribed by Dr. Cruz. I did let the patient knows that her sugar is high. She states that she had eaten right before she came here and just left quickly. She will spike from time to time this time and will cover herself. Other than that, the patient states she feels fine she will follow-up with Dr. Cruz. Dr. Cruz has requested that when the patient gets her type and screen C 72 hours before the procedure) that she would like the patient to have the automobile glass technician also order a CMP. Course - Vital Signs Vital signs: Temp Pulse Resp BP Pulse Ox 98.9 F 114 H 12 151/85 H 98 10/16/16 13:48 10/16/16 13:48 10/16/16 14:54 10/16/16 13:48 10/16/16 13:48 - Laboratory Result Diagrams: 10/16/16 15:25 10/16/16 15:25 Laboratory results interpreted by me: 10/16/16 15:25 Sodium 135.9 L Carbon Dioxide 20 L Glucose 444 H* Doctor's Discharge - Discharge Clinical Impression: Hyperkalemia resolved, Hyperglycemia Condition: Stable Disposition: HOME, SELF-CARE Additional Instructions: As we discussed, your kidney function (BUN and creatinine) was normal and your potassium was good (4.9). Your sugar was high at 444: Probably your sugar as you normally would. Plate close attention to the sugar. When you go for your blood work prior to the procedure (the type and screen which can normally be done only 72 hours before the procedure), tell them that Dr. Cruz also wanted a repeat CMP so that they can adjust can check the potassium and kidney function. I did speak to Dr. Cruz and I let her know what the results of the labs are today. Return to the ER for any problems.
[2016-10-16 15:43] LABS: ABSOLUTE EOSINOPHILS # (AUTO) 0.2 10^3/uL (0.0-0.6); ABSOLUTE LYMPHOCYTES (AUTO) 1.9 10^3/uL (0.5-4.7); ABSOLUTE MONOCYTES (AUTO) 0.4 10^3/uL (0.1-1.4); ABSOLUTE NEUT (AUTO) 4.3 10^3/uL (1.7-8.2); BASOPHILS % (AUTO) 0.4 % (0-2); EOSINOPHILS % (AUTO) 2.5 % (0-6); HEMATOCRIT 39.9 % (36.0-47.0); HEMOGLOBIN 13.6 g/dL (12.0-15.5); HGB HCT DIFFERENCE 0.9; LYMPHOCYTES % (AUTO) 28.1 % (13-45); MEAN CORPUSCULAR HEMOGLOBIN 31.2 pg (27.0-33.4); MEAN CORPUSCULAR HGB CONC 34.2 g/dL (32.0-36.0); MEAN CORPUSCULAR VOLUME 92 fl (80-97); MONOCYTES % (AUTO) 5.6 % (3-13); RED BLOOD COUNT 4.36 10^6/uL (3.72-5.28); RED CELL DISTRIBUTION WIDTH 13.6 % (11.5-14.0); SEGMENTED NEUTROPHILS % (AUTO) 63.4 % (42-78); WHITE BLOOD COUNT 6.8 10^3/uL (4.0-10.5)
[2016-10-16 15:57] LABS: ALANINE AMINOTRANSFERASE 35 U/L (9-52); ALBUMIN 4.2 g/dL (3.5-5.0); ALKALINE PHOSPHATASE 100 U/L (38-126); ANION GAP 14 (5-19); ASPARTATE AMINO TRANSFERASE 15 U/L (14-36); BILIRUBIN,DIRECT 0.4 mg/dL (0.0-0.4); BILIRUBIN,TOTAL 0.6 mg/dL (0.2-1.3); BLOOD UREA NITROGEN 14 mg/dL (7-20); CALCIUM 9.5 mg/dL (8.4-10.2); CARBON DIOXIDE 20 mmol/L (22-30); CHLORIDE 102 mmol/L (98-107); CREATININE RESULT 0.67 mg/dL (0.52-1.25); SODIUM 135.9 mmol/L (137-145); TOTAL PROTEIN 7.3 g/dL (6.3-8.2)
[2016-10-16 16:06] LABS: POTASSIUM 4.9 mmol/L (3.6-5.0)
[2016-10-16 16:09] LABS: GLUCOSE 444 mg/dL (75-110)
[2016-10-16 16:39] VITALS: BP 130/79
== END 2016-10-16 16:50 | disposition home or self-care (01) ==
LOC: ER 13:43
DX: E10.65 Type 1 diabetes mellitus with hyperglycemia (principal); I10 Essential (primary) hypertension; Z79.899 Other long term (current) drug therapy; Z91.040 Latex allergy status; Z88.1 Allergy status to other antibiotic agents; Z88.0 Allergy status to penicillin
CPT/HCPCS: 36415; 80053; 85025; 99283

== ENCOUNTER → 2016-10-21 | Outpatient (CLI) | payer MEDICAID | LOC: OD 09:57 | PROVIDERS: ATTEND Emergency Medicine | DX: Z53.9 Procedure and treatment not carried out, unspecified reason (principal) ==

== ENCOUNTER 2016-10-22 07:22 | Inpatient (IN) | payer MEDICAID ==
[2016-10-16 10:36] LABS: HEMATOCRIT 39.8 % (36.0-47.0); HEMOGLOBIN 13.8 g/dL (12.0-15.5); HGB HCT DIFFERENCE 1.6; MEAN CORPUSCULAR HEMOGLOBIN 31.3 pg (27.0-33.4); MEAN CORPUSCULAR HGB CONC 34.6 g/dL (32.0-36.0); MEAN CORPUSCULAR VOLUME 91 fl (80-97); RED CELL DISTRIBUTION WIDTH 14.3 % (11.5-14.0); WHITE BLOOD COUNT 6.8 10^3/uL (4.0-10.5)
[2016-10-16 10:42] LABS: APPEARANCE,URINE CLEAR; BILIRUBIN,URINE NEGATIVE (NEGATIVE); GLUCOSE, URINE >=500 mg/dL (NEGATIVE); KETONES,URINE TRACE mg/dL (NEGATIVE); LEUKOCYTE ESTERASE,URINE NEGATIVE (NEGATIVE); NITRITE,URINE NEGATIVE (NEGATIVE); PROTEIN,URINE NEGATIVE (NEGATIVE); URINE SPECIFIC GRAVITY 1.029; UROBILINOGEN,URINE NEGATIVE mg/dL (<2.0)
[2016-10-16 10:51] LABS: ALANINE AMINOTRANSFERASE 36 U/L (9-52); ALBUMIN 4.4 g/dL (3.5-5.0); ALKALINE PHOSPHATASE 108 U/L (38-126); ANION GAP 12 (5-19); ASPARTATE AMINO TRANSFERASE 18 U/L (14-36); BILIRUBIN,DIRECT 0.4 mg/dL (0.0-0.4); BILIRUBIN,TOTAL 0.7 mg/dL (0.2-1.3); BLOOD UREA NITROGEN 16 mg/dL (7-20); CALCIUM 9.9 mg/dL (8.4-10.2); CARBON DIOXIDE 22 mmol/L (22-30); CHLORIDE 102 mmol/L (98-107); CREATININE RESULT 0.76 mg/dL (0.52-1.25); GLUCOSE 381 mg/dL (75-110); SODIUM 136.4 mmol/L (137-145); TOTAL PROTEIN 7.8 g/dL (6.3-8.2)
[2016-10-16 11:26] LABS: POTASSIUM 6.1 mmol/L (3.6-5.0)
[~2016-10-22 07:22] MED LIST: CLINDAMYCIN 900 MG/D5W RTU 50 ML IV PRN; GENTAMICIN SULFATE 120 MG in DEXTROSE 5%-WATER 100 ML IV PRN; GENTAMICIN SULFATE/PF INJ 20 MG/2 ML VIAL IV PRN; LIDOCAINE 0.5% INJ-PF (5 MG/ML) 50 ML SDV INJ PRN; NORMAL SALINE 1000 ML 1,000 ML IV PRN
[2016-10-22] MEDS ORDERED: PROPOFOL INJ 200 MG/20 ML VIAL IV ONE (08:19)
[2016-10-22] MEDS ORDERED: FENTANYL CITRATE INJ/PF 250 MCG/5 ML AMPULE ONE (08:19)
[2016-10-22] MEDS ORDERED: MIDAZOLAM 2 MG/2 ML INJ ONE (08:19)
[2016-10-22] MEDS ORDERED: MORPHINE SULFATE 10 MG/ML INJ ONE (08:19)
[2016-10-22] MEDS ORDERED: ACETAMINOPHEN 100 ML IV ONE (08:19)
[2016-10-22 08:56] LABS: POTASSIUM 5.6 mmol/L (3.6-5.0)
[2016-10-22] MEDS ORDERED: METOCLOPRAMIDE HCL INJ/PF 10 MG/2 ML SDV ONE (09:01)
[2016-10-22] MEDS ORDERED: FAMOTIDINE INJ/PF 20 MG/2 ML SDV IV ONE (09:01)
[2016-10-22] MEDS ORDERED: SCOPOLAMINE HYDROBROMIDE 1.5 MG PATCH.TD72 TD ONE (10:00)
[2016-10-22] MEDS ORDERED: INSULIN LISPRO 100 UNIT/ML 3 ML VIAL SUBCUT ONE ×2 (10:00→16:15)
[2016-10-22] MEDS ORDERED: RINGERS SOLUTION,LACTATED 500 ML IV ONE (10:00)
[2016-10-22] MEDS ORDERED: NORMAL SALINE 500 ML IV ONE (10:00)
[2016-10-22] MEDS ORDERED: ONDANSETRON HCL INJ/PF 4 MG/2 ML SDV ONE (10:12)
[2016-10-22] MEDS ORDERED: NEOSTIGMINE METHYLSULFATE 10 MG/10 ML VIAL ONE (10:12)
[2016-10-22] MEDS ORDERED: ROCURONIUM BROMIDE INJ 50 MG/5 ML VIAL IV ONE (10:12)
[2016-10-22] MEDS ORDERED: PHENYLEPHRINE HCL INJ/PF 10 MG/1 ML SDV ONE (10:12)
[2016-10-22] MEDS ORDERED: GLYCOPYRROLATE INJ 0.4 MG/2 ML VIAL ONE (10:12)
[2016-10-22] MEDS ORDERED: SUCCINYLCHOLINE CHLORIDE INJ 200 MG/10 ML VIAL ONE (10:12)
[2016-10-22] MEDS ORDERED: DEXAMETHASONE SOD PHOSPHATE INJ 4 MG/1 ML VIAL ONE (10:12)
[2016-10-22 10:21] LABS: ANION GAP 11 (5-19); BLOOD UREA NITROGEN 16 mg/dL (7-20); CALCIUM 9.3 mg/dL (8.4-10.2); CARBON DIOXIDE 21 mmol/L (22-30); CHLORIDE 103 mmol/L (98-107); CREATININE RESULT 0.69 mg/dL (0.52-1.25); GLUCOSE 250 mg/dL (75-110); POTASSIUM 5.7 mmol/L (3.6-5.0); SODIUM 135.3 mmol/L (137-145)
[2016-10-22] MEDS ORDERED: ALBUTEROL SULFATE 0.083% NEB 2.5 MG/3 ML AMPUL NEB ONE (10:36)
[2016-10-22] MEDS ORDERED: INSULIN REG, HUMAN 100 UNIT/ML 3 ML VIAL (PYX) ONE (10:37)
[2016-10-22] MEDS ORDERED: DEXTROSE 50%-WATER 25 GM/50 ML DISP.SYRIN IV ONE (10:37)
[2016-10-22] MEDS ORDERED: BUPIVACAINE INJ/PF LIPOSOME/PF 266 MG/20 ML SDV ONE (10:50)
[2016-10-22] MEDS ORDERED: BUPIVACAINE HCL 0.25 % INJ/PF (2.5 MG/1 ML) 30 ML VIAL ONE (10:50)
[2016-10-22] MEDS ORDERED: MORPHINE SULFATE 10 MG/ML INJ IV PRN (12:36)
[2016-10-22] MEDS ORDERED: MEPERIDINE HCL/PF INJ 25 MG/1 ML DISP.SYRIN IV PRN (12:36)
[2016-10-22] MEDS ORDERED: FENTANYL CITRATE INJ/PF 100 MCG/2 ML AMPUL IV PRN ×3 (12:36)
[2016-10-22] MEDS ORDERED: PROMETHAZINE HCL INJ 25 MG/1 ML VIAL IV PRN ×2 (12:36)
[2016-10-22] MEDS ORDERED: DIPHENHYDRAMINE HCL 50 MG/ML VIAL IV PRN (12:36)
[2016-10-22] MEDS ORDERED: METHYLENE BLUE 50 MG/10 ML AMPULE ONE (13:18)
--- NOTE | 2016-10-22 13:24 | EKG REPORT ---
SEVERITY:- NORMAL ECG - SINUS RHYTHM : Confirmed by: Yandy Baird 22-Oct-2016 13:23:39
[2016-10-22] MEDS ORDERED: MICROFIBRILLAR COLLAGEN 1 GM PACK ONE (13:30)
[2016-10-22] MEDS ORDERED: IBUPROFEN INJ 800 MG/8 ML VIAL IV ONE (14:09)
[2016-10-22] MEDS ORDERED: INSULIN LISPRO 100 UNIT/ML 3 ML VIAL ONE ×2 (14:50→16:44)
[2016-10-22] MEDS: FENTANYL CITRATE INJ/PF 100 MCG/2 ML AMPUL ONE ×2 (14:50→15:00)
[2016-10-22] MEDS ORDERED: HYDROMORPHONE HCL INJ/PF 2 MG/ML AMPULE ONE (15:22)
[2016-10-22] MEDS ORDERED: OXYTOCIN/NORMAL SALINE 20 UNIT/1,000 ML RTUINJ INJ PRN (15:47)
--- NOTE | 2016-10-22 15:47 | OPERATIVE REPORT E ---
Operative Report NAME: MIGUELINA CHRISTINE : 1985 AGE: 31Y DATE OF SURGERY: 10/22/2016 ROOM: OR PREOPERATIVE DIAGNOSES: 1. Abnormal bleeding and pelvic pain. 2. Recurrent panniculitis. POSTOPERATIVE DIAGNOSES: 1. Abnormal bleeding and pelvic pain. 2. Recurrent panniculitis. OPERATION PERFORMED: Total abdominal hysterectomy with mini-panniculectomy and cystoscopy. SURGEON: ЕКАТЕРИНА MACK M.D. [employer] SUPERVISOR: Dr. Heard. FINDINGS: Boggy uterus with a few bladder adhesions. Surgically absent fallopian tubes. There were normal appearing ovaries. The ureters were patent bilaterally at the end of the procedure. Bladder was intact without any evidence of damage from surgery. Of note, there had a fine crack under her pannus. Prior to this, the patient had had recurrent fungal infections. SPECIMENS TO PATHOLOGY: 1. Uterus. 2. The redundant subcutaneous fat tissue was discarded. ESTIMATED BLOOD LOSS: Two-hundred mL. DESCRIPTION OF PROCEDURE: After discussing risks, benefits, and alternatives of the procedure and obtaining informed consent, patient was taken to the operating room where general anesthesia was achieved. She was positioned in the dorsal supine position. The pannus was taped back and the abdomen and vagina were prepped and draped in the usual standard fashion after placing Gonzalez catheter. An elliptical section of the pannus was excised in the lower abdomen. This included the area of skin where it had been chronically cracked. The incision was carried down with cautery to the level of the fascia. The tissue was discarded and hemostasis achieved. Fascial incision was made in the form of a Pfannenstiel skin incision and the abdomen was entered in layers in the standard fashion. The bowel was packed away with moistened laparotomy sponges and the patient was placed in Trendelenburg. A [place] retractor was placed. The uterus was grasped with Lolis clamps. The round ligaments were each suture ligated and tagged with 0 Monocryl. The LigaSure Impact device was used to interrupt the round ligaments on either side. Bladder flap was created using a combination of sharp and blunt dissection. The utero-ovarian pedicles were isolated and coagulated with LigaSure Impact device. The uterine arteries were skeletonized. The uterine arteries were coagulated and cut with the LigaSure Impact device. The Zeppelin clamp was used to clamp the uterosacral ligaments and cervical branch of uterine artery on each side. The uterosacral ligaments were cut, suture ligated and tagged. A Deisi clamp was then placed immediately inferior to the cervix after ascertaining that the bladder had been taken down adequately. This was done on either side and the specimen was excised. The vaginal cuff angles were suture ligated with 0 Vicryl and tagged. The cuff that was in between this area was closed with [id number] of 0 Monocryl. An area of oozing was noted near the left ovary and hemostasis was achieved with 3-0 Vicryl. Excellent hemostasis was then observed. The cavity was irrigated. After assuring hemostasis, Avastin powder was placed. The laparotomy sponges were removed. The peritoneum was closed with 2-0 Vicryl in a pursestring fashion. The rectus muscles were loosely reapproximated with interrupted sutures of 2-0 Vicryl. Subfascial spaces were inspected and hemostasis assured. Fascia was closed with #1 Vicryl. The subcutaneous spaces were irrigated and the skin on the mons pubis was undermined slightly to allow for reapproximation of the subcutaneous spaces with 3-0 plain gut. During this time, the pannus that had been retracted was released. The skin was closed in a subcuticular fashion with 4-0 Monocryl. A long ERIKA dressing was placed to adequately cover the wound in this patient with type 1 diabetes and recurrent panniculitis. The cystoscopy was performed and ureters were patent. The patient was extubated and taken to recovery in stable condition. All sponge, needle, lap, and instrument counts were correct x2. DICTATING PHYSICIAN: ЕКАТЕРИНА MACK M.D. [id number] PHY#: [id number] ID: [id number] JOB#: [id number] ACCT: [id number] cc:ЕКАТЕРИНА AMCK M.D. > MTDD
[2016-10-22] MEDS ORDERED: RINGERS SOLUTION,LACTATED 1,000 ML IV SCH (16:00)
[2016-10-22] MEDS ORDERED: ACETAMINOPHEN 325 MG TABLET PO PRN (16:00)
[2016-10-22] MEDS ORDERED: PROMETHAZINE HCL INJ 25 MG/1 ML VIAL IM PRN (16:00)
[2016-10-22] MEDS ORDERED: DIPH/PERTUSS(ACELL)/TETANUS VAC/PF 0.5 ML SYR (>=10YO) IM PRN (16:00)
[2016-10-22] MEDS ORDERED: OXYCODONE-ACETAMINOPHEN 5-325 MG TABLET PO PRN ×2 (16:00)
[2016-10-22] MEDS ORDERED: MEASLES,MUMPS&RUBELLA VACC/PF 0.5 ML VIAL SUBCUT PRN (16:00)
[2016-10-22] MEDS ORDERED: SIMETHICONE 80 MG TAB.CHEW PO PRN (16:00)
[2016-10-22] MEDS ORDERED: HYDROMORPHONE HCL INJ/PF 2 MG/ML AMPULE IV PRN (16:00)
[2016-10-22] MEDS ORDERED: INSULIN ASPART 8 UNIT SUBCUT SCH (17:00)
[2016-10-22] MEDS: HYDROMORPHONE HCL INJ/PF 2 MG/ML AMPULE INJ PRN ×3 (17:16→23:22)
[2016-10-22] MEDS ORDERED: NORMAL SALINE 1000 ML 1,000 ML IV PRN (17:56)
--- NOTE | 2016-10-22 17:58 | PDOC CONSULTATION ---
Consultation Consult Date: 10/22/16 Attending physician:: ЕКАТЕРИНА MACK Consult reason:: medical management of her diabetes, HTN, hypothyroidism History of Present Illness Admission Date/PCP: 10/22/16 07:22 JACINTO ALICEA MD Patient complains of: abnormal bleeding and menstrual pain History of Present Illness: MIGUELINA CHRISTINE is a 31 year old female with long complicated wireless cellular technician history including but not limited to tubal ligation after ectopic and today's elective open hysterectomy due to DUB and menometrorrhagia. She has type 1 DM, insulin dependent first diagnosed at age of 14, previously seen by endocrinology but fired from that practice for reasons that aren't entirely clear to me, long standing HTN and hypothyroidism all of which have been managed by her OB as an outpt. we were consulted to help manage these medical problems while inpatient and postoperatively. she reports no neuropathy and no complications of renal disease or eye disease from her HTN or DM. she reports labile blood sugars that were well controlled just prior to surgery on levemir 30U in am and 28U HS with SSI of usually 5-8U premeal giving CBGs ranging 84-125. she thinks er last A1c was <9. she cannot remember her last TSH but when last checked here in 2014 was 18.7. Past Medical History Cardiac Medical History: Reports: Hypertension Denies: Atrial Fibrillation, Congestive Heart Failure, Coronary Artery Disease, DVT, Myocardial Infarction, Hyperlipidema, Peripheral Vascular Disease , Pulmonary Embolism, Heart Murmur Pulmonary Medical History: Denies: Asthma, Chronic Obstructive Pulmonary Disease (COPD) Neurological Medical History: Denies: Seizures Endocrine Medical History: Reports: Diabetes Mellitus Type 1, Hypothyroidism - 2009 Denies: Diabetes Mellitus Type 2, Hyperthyroidism Malignancy Medical History: Denies: Breast Cancer, Cervical Cancer, Ovarian Cancer GI Medical History: Denies: Cirrhosis, Gastroesophageal Reflux Disease, Hepatitis Musculoskeltal Medical History: Denies: Arthritis Psychiatric Medical History: Reports: Depression - post - , Post Traumatic Stress Disorder - NICU with daughter 2014 Denies: Bipolar Disorder Past Surgical History Past Surgical History: Reports: Section, Tubal Ligation Denies: Appendectomy, Cholecystectomy, Coronary Artery Bypass Graft, Gastric Bypass Surgery, Herniorrhaphy, Hysterectomy, Mastectomy, Pacemaker, Tonsillectomy Social History Information Source: Patient Smoking Status: Never Smoker Frequency of Alcohol Use: None Hx Recreational Drug Use: No Drugs: None Hx Prescription Drug Abuse: No - Advance Directive Resuscitation Status: Full Code Family History Family History: Reviewed & Not Pertinent - did not know her biologic parents Parental Family History Reviewed: Yes Children Family History Reviewed: Yes Sibling(s) Family History Reviewed.: Yes Medication/Allergy Home Medications: Insulin Aspart [Novolog Flexpen] 8 units SUBCUT WBRKFST 07/02/16 Insulin Aspart [Novolog Flexpen] 8 units SUBCUT WLUNCH 07/02/16 Insulin Aspart [Novolog Flexpen] 8 units SUBCUT WSUPPER 07/02/16 Insulin Detemir [Levemir Flextouch] 30 units SUBCUT QAM 07/02/16 Insulin Detemir [Levemir Flextouch] 35 units SUBCUT QPM 07/02/16 Levothyroxine Sodium [Synthroid 0.15 mg Tablet] 150 mcg PO QAM 07/02/16 Nifedipine [Nifedipine ER] 30 mg PO QAM 07/02/16 Duloxetine HCl [Cymbalta] 30 mg PO DAILY 10/16/16 Lisinopril 1 tab PO BID 10/16/16 Lorazepam [Ativan 0.5 mg Tablet] 1 mg PO BID PRN 10/16/16 Allergies/Adverse Reactions: iodine [Iodine] Allergy (Intermediate, Verified 10/16/16 13:48) latex [Latex] Allergy (Intermediate, Verified 10/16/16 13:48) Hives ceftriaxone sodium [From Rocephin] Allergy (Mild, Verified 10/16/16 13:48) nitrofurantoin [From Macrobid] Allergy (Mild, Verified 10/16/16 13:48) Penicillins Allergy (Mild, Verified 10/16/16 13:48) metronidazole [From Flagyl] Allergy (Verified 10/16/16 13:48) Review of Systems All systems: reviewed and no additional remarkable complaints except as stated - she denies chest pain, palpitations, vision changes, n/v, rash, weight loss or gain, night sweats; all systems reviewed, as above, remaining systems negative Physical Exam Vital Signs: Temp Pulse Resp BP Pulse Ox 98.9 F 80 16 107/61 97 10/22/16 17:03 10/22/16 17:03 10/22/16 17:03 10/22/16 17:03 10/22/16 17:03 Intake & Output 10/21/16 10/22/16 10/23/16 06:59 06:59 06:59 Intake Total 4000 Output Total 1275 Balance 2725 General appearance: PRESENT: obese, well-developed, well-nourished Head exam: PRESENT: atraumatic, normocephalic Eye exam: PRESENT: EOMI. ABSENT: conjunctival injection, scleral icterus Mouth exam: PRESENT: moist, neck supple Neck exam: PRESENT: full ROM. ABSENT: lymphadenopathy Respiratory exam: PRESENT: clear to auscultation rachael. ABSENT: accessory muscle use Cardiovascular exam: PRESENT: RRR. ABSENT: systolic murmur Pulses: PRESENT: normal radial pulses, normal dorsalis pedis pul Vascular exam: PRESENT: normal capillary refill GI/Abdominal exam: PRESENT: diminished bowel sounds, soft, tenderness - seems appropriate as she is only a couple hours postop Extremities exam: ABSENT: calf tenderness, clubbing, pedal edema Musculoskeletal exam: PRESENT: full ROM. ABSENT: tenderness Neurological exam: PRESENT: alert, awake, oriented to person, oriented to place , oriented to time, oriented to situation Psychiatric exam: PRESENT: appropriate affect, normal mood Skin exam: PRESENT: dry, warm Results Laboratory Results: 10/16/16 09:34 10/22/16 11:17 10/22/16 10/22/16 10/22/16 08:22 09:54 11:17 Sodium 135.3 L Potassium 5.6 H 5.7 H 4.4 D Chloride 103 Carbon Dioxide 21 L Anion Gap 11 BUN 16 Creatinine 0.69 Est GFR ( Amer) > 60 Est GFR (Non-Af Amer) > 60 Glucose 277 H 250 H Calcium 9.3 Assessment & Plan - Diagnosis (1) HTN (hypertension) Qualifiers: Hypertension type: essential hypertension Qualified Code(s): I10 - Essential (primary) hypertension Is this a current diagnosis for this admission?: YesPlan: currently well controlled on procardia, ok to continue same for now and will titrate as needed. previously required escalating doses of ACEi until encountering hyperkalemia, may need to use again due to its renal protective benefits in diabetes, just at a lower dose. (2) Hypothyroidism Qualifiers: Hypothyroidism type: unspecified Qualified Code(s): E03.9 - Hypothyroidism, unspecified Is this a current diagnosis for this admission?: YesPlan: document a more recent TSH and adjust her dose accordingly (3) Insulin dependent diabetes mellitus Is this a current diagnosis for this admission?: YesPlan: as her diet increases will return her to what was working at home; for now cover with basal/bolus and will likely experience some hyperglycemia until she equilibrates (4) Obesity Qualifiers: Obesity type: due to excess calories Is this a current diagnosis for this admission?: Yes (5) Hyperkalemia Is this a current diagnosis for this admission?: YesPlan: likely due to ACEi use; f/u labs in am and address as needed. ok to give IVFs but would change from lactated ringers as it contains potassium chloride to NS - Time Time Spent: 50 to 70 Minutes Medications reviewed and adjusted accordingly: Yes - Plan Summary Plan Summary: many thanks for the consult, will continue to follow along and titrate meds as needed.
[2016-10-22] MEDS ORDERED: IBUPROFEN 800 MG TABLET PO ONE (18:00)
[2016-10-22] MEDS: INSULIN DETEMIR 100 UNIT/ML 3 ML PEN SUBCUT SCH (18:12)
[2016-10-22] MEDS: INSULIN LISPRO 100 UNIT/ML 3 ML VIAL SUBCUT SCH (18:12)
[2016-10-22] MEDS ORDERED: RINGERS SOLUTION,LACTATED 1,000 ML IV PRN (18:17)
[2016-10-22] MEDS: GENTAMICIN SULFATE 120 MG in DEXTROSE 5%-WATER 100 ML IV SCH (18:23)
[2016-10-22] MEDS: LORAZEPAM 1 MG TABLET PO PRN (18:24)
[2016-10-22] MEDS: DOCUSATE SODIUM 100 MG CAPSULE PO SCH (18:24)
[2016-10-22] MEDS ORDERED: IBUPROFEN INJ 800 MG/8 ML VIAL IV SCH (20:30)
[2016-10-22] MEDS: CLINDAMYCIN 900 MG/D5W RTU 50 ML IV SCH (21:01)
[2016-10-22] MEDS: ONDANSETRON HCL INJ/PF 4 MG/2 ML SDV IV SCH (21:05)
[2016-10-22] MEDS ORDERED: KETOROLAC TROMETHAMINE INJ/PF 30 MG/1 ML SDV IV SCH (22:00)
[2016-10-22] MEDS ORDERED: ACETAMINOPHEN 100 ML IV SCH (22:00)
[2016-10-22] MEDS ORDERED: IBUPROFEN 800 MG TABLET PO SCH (22:00)
[2016-10-22] MEDS ORDERED: IBUPROFEN 800 MG in NORMAL SALINE 250 ML IV SCH (22:00)
[2016-10-23] MEDS: GENTAMICIN SULFATE 120 MG in DEXTROSE 5%-WATER 100 ML IV SCH (01:29)
[2016-10-23] MEDS ORDERED: RINGERS SOLUTION,LACTATED 1,000 ML IV ONE (02:15)
[2016-10-23 02:31] LABS: ABSOLUTE LYMPHOCYTES (AUTO) 1.5 10^3/uL (0.5-4.7); ABSOLUTE MONOCYTES (AUTO) 0.8 10^3/uL (0.1-1.4); ABSOLUTE NEUT (AUTO) 6.5 10^3/uL (1.7-8.2); BASOPHILS % (AUTO) 0.2 % (0-2); EOSINOPHILS % (AUTO) 0.1 % (0-6); HEMATOCRIT 35.1 % (36.0-47.0); HGB HCT DIFFERENCE 0.9; LYMPHOCYTES % (AUTO) 16.7 % (13-45); MEAN CORPUSCULAR HEMOGLOBIN 31.5 pg (27.0-33.4); MEAN CORPUSCULAR HGB CONC 34.2 g/dL (32.0-36.0); MEAN CORPUSCULAR VOLUME 92 fl (80-97); MONOCYTES % (AUTO) 8.7 % (3-13); RED BLOOD COUNT 3.81 10^6/uL (3.72-5.28); RED CELL DISTRIBUTION WIDTH 14.1 % (11.5-14.0); SEGMENTED NEUTROPHILS % (AUTO) 74.3 % (42-78); WHITE BLOOD COUNT 8.8 10^3/uL (4.0-10.5)
[2016-10-23 02:45] LABS: ANION GAP 9 (5-19); BLOOD UREA NITROGEN 19 mg/dL (7-20); CALCIUM 8.2 mg/dL (8.4-10.2); CARBON DIOXIDE 21 mmol/L (22-30); CHLORIDE 106 mmol/L (98-107); CREATININE RESULT 0.95 mg/dL (0.52-1.25); GLUCOSE 182 mg/dL (75-110); MAGNESIUM 1.5 mg/dL (1.6-2.3); POTASSIUM 5.2 mmol/L (3.6-5.0); SODIUM 136.2 mmol/L (137-145)
[2016-10-23] MEDS: HYDROMORPHONE HCL INJ/PF 2 MG/ML AMPULE INJ PRN ×3 (03:18→17:55)
[2016-10-23] MEDS: ONDANSETRON HCL INJ/PF 4 MG/2 ML SDV IV SCH ×3 (05:07→23:07)
[2016-10-23] MEDS: CLINDAMYCIN 900 MG/D5W RTU 50 ML IV SCH (05:07)
--- NOTE | 2016-10-23 07:51 | PDOC PROGRESS REPORT ---
Subjective Progress Note for:: 10/23/16 Subjective:: Pt c/o itching. Notes adequate pain control. Had flatus. No vaginal bleeding. Physical Exam - Physical Exam Vital Signs: Temp Pulse Resp BP Pulse Ox 98.0 F 82 18 113/63 96 10/23/16 04:29 10/23/16 04:29 10/23/16 04:29 10/23/16 04:29 10/23/16 04:29 Intake & Output 10/22/16 10/23/16 10/24/16 06:59 06:59 06:59 Intake Total 5800 Output Total 2270 Balance 3530 General appearance: PRESENT: no acute distress GI/Abdominal exam: PRESENT: soft - bowel sounds present, normal postop tenderness, dressing intact, clean and dry Extremities exam: PRESENT: full ROM. ABSENT: calf tenderness, clubbing, pedal edema Result Laboratory Results: 10/23/16 02:25 10/23/16 02:25 10/22/16 10/22/16 10/22/16 08:22 09:54 11:17 WBC RBC Hgb Hct MCV MCH MCHC RDW Plt Count Seg Neutrophils % Lymphocytes % Monocytes % Eosinophils % Basophils % Absolute Neutrophils Absolute Lymphocytes Absolute Monocytes Absolute Eosinophils Absolute Basophils Sodium 135.3 L Potassium 5.6 H 5.7 H 4.4 D Chloride 103 Carbon Dioxide 21 L Anion Gap 11 BUN 16 Creatinine 0.69 Est GFR ( Amer) > 60 Est GFR (Non-Af Amer) > 60 Glucose 277 H 250 H Calcium 9.3 Magnesium TSH 10/23/16 10/23/16 10/23/16 02:25 02:25 02:25 WBC 8.8 RBC 3.81 Hgb 12.0 Hct 35.1 L MCV 92 MCH 31.5 MCHC 34.2 RDW 14.1 H Plt Count 315 Seg Neutrophils % 74.3 Lymphocytes % 16.7 Monocytes % 8.7 Eosinophils % 0.1 Basophils % 0.2 Absolute Neutrophils 6.5 Absolute Lymphocytes 1.5 Absolute Monocytes 0.8 Absolute Eosinophils 0.0 Absolute Basophils 0.0 Sodium 136.2 L Potassium 5.2 H Chloride 106 Carbon Dioxide 21 L Anion Gap 9 BUN 19 Creatinine 0.95 Est GFR ( Amer) > 60 Est GFR (Non-Af Amer) > 60 Glucose 182 H Calcium 8.2 L Magnesium 1.5 L TSH 1.57 Assessment & Plan - Diagnosis (2) Hyperkalemia Is this a current diagnosis for this admission?: Yes (3) HTN (hypertension) Qualifiers: Hypertension type: essential hypertension Qualified Code(s): I10 - Essential (primary) hypertension Is this a current diagnosis for this admission?: Yes (4) Hypothyroidism Qualifiers: Hypothyroidism type: unspecified Qualified Code(s): E03.9 - Hypothyroidism, unspecified Is this a current diagnosis for this admission?: Yes (5) Insulin dependent diabetes mellitus Is this a current diagnosis for this admission?: YesPlan: optimize glycemica control pt rquired ivf bolus last night-now adequate UO...if continues to be adequate d/ c fletcher at lunch time and ambulate -zyrtec for itching -ambulate when fletcher out -check daily labs -have stopped NSAIDS when UO decreased in middle of night-pain control with narcotics -cont procardia xl for bp now -adequately replaced on synthroid -add magnesium to iv NS for replacement -appreciate Internal Medicine input
[2016-10-23] MEDS ORDERED: INSULIN ASPART 8 UNIT SUBCUT SCH ×2 (08:00→12:00)
[2016-10-23] MEDS ORDERED: NORMAL SALINE IV PRN ×2 (08:10)
[2016-10-23] MEDS ORDERED: MAGNESIUM SULFATE IV PRN ×2 (08:10)
[2016-10-23] MEDS ORDERED: CETIRIZINE 10 MG TABLET PO ONE (08:30)
[2016-10-23] MEDS ORDERED: NORMAL SALINE 1000 ML 1,000 ML IV PRN (08:34)
[2016-10-23] MEDS: INSULIN DETEMIR 100 UNIT/ML 3 ML PEN SUBCUT SCH ×2 (09:08→17:34)
[2016-10-23] MEDS: INSULIN LISPRO 100 UNIT/ML 3 ML VIAL SUBCUT SCH ×3 (09:08→16:32)
[2016-10-23] MEDS: NIFEDIPINE 30 MG TAB.ER.24 PO SCH (09:08)
[2016-10-23] MEDS: LEVOTHYROXINE SODIUM 0.15 MG TABLET PO SCH (09:08)
[2016-10-23] MEDS: DOCUSATE SODIUM 100 MG CAPSULE PO SCH ×2 (09:22→17:34)
[2016-10-23] MEDS: LORAZEPAM 1 MG TABLET PO PRN ×2 (09:23→17:35)
[2016-10-23] MEDS ORDERED: DULOXETINE HCL 30 MG CAPSULE.DR PO SCH (10:00)
[2016-10-23] MEDS ORDERED: (PENDING PHARMACY ID) (Duloxetine Hcl [Cymbalta] 30 MG) PO SCH (10:00)
[2016-10-23] MEDS ORDERED: PRENATAL VITAMIN W-O CA NO5/FE FUMARATE/FA CAPSULE PO SCH (10:00)
[2016-10-23] MEDS ORDERED: CETIRIZINE 10 MG TABLET PO SCH (10:00)
--- NOTE | 2016-10-23 11:29 | PDOC PROGRESS REPORT ---
Subjective Progress Note for:: 10/23/16 Subjective:: reason for visit: f/u HTN, DM, hyperK, hypoMg, hypothyroidism course: she received a bolus of LR last night for low uop otherwise no new events overnight. Her BP trend is good. Her BSs are a bit on the high side but she is still recovering from her surgery which will cause cortisol release and labile sugars of course. Overall trend is satisfactory though her A1c of 8.5 is not at goal. Her TSH shows adequate hormone replacement. Physical Exam Vital Signs: Temp Pulse Resp BP Pulse Ox 97.9 F 85 20 115/62 96 10/23/16 08:24 10/23/16 08:24 10/23/16 08:24 10/23/16 08:24 10/23/16 08:24 Intake & Output 10/22/16 10/23/16 10/24/16 06:59 06:59 06:59 Intake Total 5800 Output Total 2270 Balance 3530 Results Laboratory Results: 10/23/16 02:25 10/23/16 02:25 10/22/16 10/23/16 10/23/16 11:17 02:25 02:25 WBC RBC Hgb Hct MCV MCH MCHC RDW Plt Count Seg Neutrophils % Lymphocytes % Monocytes % Eosinophils % Basophils % Absolute Neutrophils Absolute Lymphocytes Absolute Monocytes Absolute Eosinophils Absolute Basophils Sodium 136.2 L Potassium 4.4 D 5.2 H Chloride 106 Carbon Dioxide 21 L Anion Gap 9 BUN 19 Creatinine 0.95 Est GFR ( Amer) > 60 Est GFR (Non-Af Amer) > 60 Glucose 182 H Calcium 8.2 L Magnesium 1.5 L TSH 1.57 10/23/16 02:25 WBC 8.8 RBC 3.81 Hgb 12.0 Hct 35.1 L MCV 92 MCH 31.5 MCHC 34.2 RDW 14.1 H Plt Count 315 Seg Neutrophils % 74.3 Lymphocytes % 16.7 Monocytes % 8.7 Eosinophils % 0.1 Basophils % 0.2 Absolute Neutrophils 6.5 Absolute Lymphocytes 1.5 Absolute Monocytes 0.8 Absolute Eosinophils 0.0 Absolute Basophils 0.0 Sodium Potassium Chloride Carbon Dioxide Anion Gap BUN Creatinine Est GFR ( Amer) Est GFR (Non-Af Amer) Glucose Calcium Magnesium TSH Assessment & Plan - Diagnosis (1) HTN (hypertension) Qualifiers: Hypertension type: essential hypertension Qualified Code(s): I10 - Essential (primary) hypertension Is this a current diagnosis for this admission?: YesPlan: currently well controlled on procardia, ok to continue same. previously required escalating doses of ACEi until encountering hyperkalemia, may need to use again due to its renal protective benefits in diabetes, just at a lower dose. (2) Hypothyroidism Qualifiers: Hypothyroidism type: unspecified Qualified Code(s): E03.9 - Hypothyroidism, unspecified Is this a current diagnosis for this admission?: YesPlan: good control, continue current regimen (3) Insulin dependent diabetes mellitus Is this a current diagnosis for this admission?: YesPlan: poor control but satisfied with her current regimen as CBGs will be labile right after surgery for reasons noted above and change in her oral intake. will adjust regimen as needed, goal is <200 overall for the short term. (4) Obesity Qualifiers: Obesity type: due to excess calories Is this a current diagnosis for this admission?: Yes (5) Hyperkalemia Is this a current diagnosis for this admission?: YesPlan: mild and clinically insignificant; recommend using NS for further IVFs and boluses - Time Time Spent with patient: Less than 15 minutes
[2016-10-24] MEDS: ONDANSETRON HCL INJ/PF 4 MG/2 ML SDV IV SCH (06:13)
[2016-10-24 06:50] LABS: HEMATOCRIT 31.3 % (36.0-47.0); HGB HCT DIFFERENCE 1.7; MEAN CORPUSCULAR HEMOGLOBIN 32.1 pg (27.0-33.4); MEAN CORPUSCULAR HGB CONC 35.1 g/dL (32.0-36.0); MEAN CORPUSCULAR VOLUME 91 fl (80-97); RED BLOOD COUNT 3.43 10^6/uL (3.72-5.28); RED CELL DISTRIBUTION WIDTH 13.7 % (11.5-14.0); WHITE BLOOD COUNT 6.7 10^3/uL (4.0-10.5)
[2016-10-24 07:09] LABS: ANION GAP 5 (5-19); BLOOD UREA NITROGEN 9 mg/dL (7-20); CALCIUM 8.4 mg/dL (8.4-10.2); CARBON DIOXIDE 21 mmol/L (22-30); CHLORIDE 105 mmol/L (98-107); CREATININE RESULT 0.69 mg/dL (0.52-1.25); GLUCOSE 180 mg/dL (75-110); POTASSIUM 4.3 mmol/L (3.6-5.0); SODIUM 131.2 mmol/L (137-145)
--- NOTE | 2016-10-24 08:29 | PDOC PROGRESS REPORT ---
Subjective Progress Note for:: 10/24/16 Subjective:: Pt ambulating, tolerating po, +flatus, adequate pain control on percocet. Physical Exam - Physical Exam Vital Signs: Temp Pulse Resp BP Pulse Ox 98.8 F 102 H 16 121/67 94 10/24/16 04:36 10/24/16 04:36 10/24/16 04:36 10/24/16 04:36 10/24/16 04:36 Intake & Output 10/23/16 10/24/16 10/25/16 06:59 06:59 06:59 Intake Total 5800 1318 Output Total 2270 1700 Balance 3530 -382 General appearance: PRESENT: no acute distress GI/Abdominal exam: PRESENT: soft - normal post op tenderness, jayne dressing clean and dry Extremities exam: PRESENT: full ROM. ABSENT: calf tenderness, clubbing, pedal edema Result Laboratory Results: 10/24/16 06:38 10/24/16 06:38 10/24/16 10/24/16 06:38 06:38 WBC 6.7 RBC 3.43 L Hgb 11.0 L Hct 31.3 L MCV 91 MCH 32.1 MCHC 35.1 RDW 13.7 Plt Count 246 Sodium 131.2 L Potassium 4.3 Chloride 105 Carbon Dioxide 21 L Anion Gap 5 BUN 9 Creatinine 0.69 Est GFR ( Amer) > 60 Est GFR (Non-Af Amer) > 60 Glucose 180 H Calcium 8.4 Assessment & Plan - Diagnosis (2) Hyperkalemia Is this a current diagnosis for this admission?: Yes (3) HTN (hypertension) Qualifiers: Hypertension type: essential hypertension Qualified Code(s): I10 - Essential (primary) hypertension Is this a current diagnosis for this admission?: Yes (4) Hypothyroidism Qualifiers: Hypothyroidism type: unspecified Qualified Code(s): E03.9 - Hypothyroidism, unspecified Is this a current diagnosis for this admission?: Yes (5) Insulin dependent diabetes mellitus Is this a current diagnosis for this admission?: Yes - Plan Summary Plan Summary: d/c home with routine post op insturctions..f/u with me on Tu or Wed.
--- NOTE | 2016-10-24 09:50 | Progress Note ---
Provider Note Provider Note: pt is being discharged home today. her BP and BSs are reasonably well controlled and certainly stable for d/c home. I recommend she stay on hospital regimen until f/u with her new PCP for further titration of her chronic meds. she is well versed on management of her diabetes and I feel comfortable with her adjusting her long acting regimen by degrees until she can f/u with PCP, afterall she has managed to get her A1c down from >14 to 8.5 with the help of Dr Moore. I recommend she stop the lisinopril and allow her PCP to reintroduce at lower dose in the near future as he clinical condition warrants. Once she is cleared from her Hvac Manager surgery also considering ASA 81mg as primary prophylaxis against stroke and heart disease given her multiple risk factors for both and in spite of her young age. Weight loss would certainly be her benefit, even a modest 10# would decrease her risks. all questions were answered to her and her husbands satisfaction, they express understanding of and willingness to comply with treatment plan. many thanks for allowing me to participate in her care. she is stable for d/c home from my standpoint.
[2016-10-24 09:59] VITALS: BP 133/84
--- NOTE | 2016-10-24 10:17 | DISCHARGE SUMMARY E ---
Discharge Summary NAME: MIGUELINA CHRISTINE : 1985 AGE: 31Y ADMITTED: 10/22/2016 DISCHARGED: 10/24/2016 INDICATIONS FOR ADMISSION: Abnormal bleeding and pelvic pain with desire for definitive therapy with hysterectomy. HOSPITAL COURSE: The patient is a 31-year-old female who has a complicated medical history which includes type 1 diabetes, chronic hypertension, hypothyroidism as well as anxiety and depression. She had had abnormal bleeding and pelvic pain which had worsened to the extent that she could no longer exercise. She had tried progesterone therapy and it was refractory to that. She was not a candidate for estrogen therapy. She had also had chronic panniculitis to a redundant pannus and her type 1 diabetes. At the time of her laparoscopy for ectopic and tubal ligation in the past, it was noted that her abdominal wall was very thick requiring long trocars which barely allowed access for resection of the fallopian tubes. She had also been very difficult to maintain a pneumoperitoneum at that time. The decision was therefore made to do total abdominal hysterectomy and mini-panniculectomy. On the day of admission, the patient was noted to have hyperkalemia. Her potassium was 5.7. This was felt to be due to recent increase in VAN inhibitor dosage. On lisinopril 20 mg a day, she had not had hyperkalemia but she had been increased to 40 recently. The hyperkalemia was treated with insulin and IV glucose prior to surgery on 10/22/2016. This brought her potassium down to normal level. She underwent total abdominal hysterectomy with mini-panniculectomy and a cystoscopy. Ureters were patent at the end of the procedure. Her postoperative course was complicated by some elevated glucoses which was managed with insulin. We did obtain internal medicine consultation. Her TSH was normal and her hemoglobin A1c was 8.6. Her hemoglobin was 11 and her hematocrit 31 at the time of discharge. Her potassium off the VAN inhibitor came down to 4.3. She did have slightly low magnesium level which was replenished during her stay. Her creatinine elevated slightly on NSAIDs on postoperative day 1, therefore that was discontinued and it returned to actually better than baseline at 0.69 off of NSAIDs. By the time of discharge, she was ambulating, tolerating oral intake and had passed flatus. She had a ERIKA dressing in place which was dry. She was given routine postoperative instructions and we extensively the need to optimize glycemic control for good wound healing. The patient will continue usual home medications, except stop lisinopril and increase her Procardia XL to 30 b.i.d. On this regimen, her potassium is normal. The resumption of VAN inhibitor will be addressed with internal medicine in the future. DISCHARGE DIAGNOSES: 1. Abnormal bleeding and pelvic pain refractory to medical management. 2. Status post total abdominal hysterectomy with mini-panniculectomy for recurrent panniculitis. 3. Type 1 diabetes. 4. Hypertension. 5. Hypothyroidism. 6. Anxiety and depression. DISCHARGE DIET: Diabetic. DISCHARGE ACTIVITY: Pelvic rest and light activity. The patient will see me in about 5 to 7 days, sooner should problems arise. DISCHARGE MEDICATIONS: Percocet 5/325 one to 2 p.o. q.i.d. p.r.n. #40 with no refills. DICTATING PHYSICIAN: ЕКАТЕРИНА MACK M.D. [id number] PHY#: [id number] ID: [id number] JOB#: [id number] ACCT: [id number] cc:ЕКАТЕРИНА MACK M.D. >
[2016-10-24] MEDS: LEVOTHYROXINE SODIUM 0.15 MG TABLET PO SCH (10:32)
[2016-10-24] MEDS: INSULIN LISPRO 100 UNIT/ML 3 ML VIAL SUBCUT SCH (10:32)
[2016-10-24] MEDS: NIFEDIPINE 30 MG TAB.ER.24 PO SCH (10:32)
[2016-10-24] MEDS: INSULIN DETEMIR 100 UNIT/ML 3 ML PEN SUBCUT SCH (10:32)
== END 2016-10-24 10:30 | disposition home or self-care (01) | DRG 742 ==
LOC: INOR 07:22 → 2N 16:28
PROVIDERS: ADMIT Specialist; ATTEND Specialist
PROC: 0UTC0ZZ Resection of Cervix, Open Approach (ICD-10-PCS; 2016-10-22)
PROC: 0WBF0ZZ Excision of Abdominal Wall, Open Approach (ICD-10-PCS; 2016-10-22)
PROC: 0TJB8ZZ Inspection of Bladder, Via Natural or Artificial Opening Endoscopic (ICD-10-PCS; 2016-10-22)
PROC: 0UT90ZZ Resection of Uterus, Open Approach (ICD-10-PCS; principal; 2016-10-22 10:15)
DX: N93.8 Other specified abnormal uterine and vaginal bleeding (principal); Z68.41 Body mass index [BMI] 40.0-44.9, adult; E10.9 Type 1 diabetes mellitus without complications; I10 Essential (primary) hypertension; E03.9 Hypothyroidism, unspecified; F41.9 Anxiety disorder, unspecified; F32.9 Major depressive disorder, single episode, unspecified; M79.3 Panniculitis, unspecified; E87.5 Hyperkalemia; N92.1 Excessive and frequent menstruation with irregular cycle; F43.10 Post-traumatic stress disorder, unspecified; E66.09 Other obesity due to excess calories; Z79.4 Long term (current) use of insulin; Z79.899 Other long term (current) drug therapy; Z88.0 Allergy status to penicillin; Z88.8 Allergy status to other drugs, medicaments and biological substances; Z88.1 Allergy status to other antibiotic agents; Z88.3 Allergy status to other anti-infective agents; Z91.040 Latex allergy status; Z82.49 Family history of ischemic heart disease and other diseases of the circulatory system; Z81.1 Family history of alcohol abuse and dependence; Z82.3 Family history of stroke; Z83.3 Family history of diabetes mellitus
CPT/HCPCS: 36415; 80048; 80053; 81001; 81025; 82947; 82962; 83036; 83735; 840; 84132; 84443; 85025; 85027; 86850; 86900; 86901; 88307; 93005; 93010; C9290; J0131; J0330; J1100; J1170; J1580; J1741; J1815; J2250; J2270; J2370; J2405; J2704; J2765; J3010; J3475; J3490; J7030; J7050; J7120; Q9968; S0028

== ENCOUNTER 2016-10-27 14:31 | Emergency (ER) | payer MEDICAID ==
--- NOTE | 2016-10-27 15:23 | ER Document Report ---
ED General - General Chief Complaint: Leg Swelling Stated Complaint: SWOLLEN LEG Time Seen by Provider: 10/27/16 15:16 Mode of Arrival: Wheelchair Information source: Patient Notes: 31 yr old female who had a ANA 5 days ago presents with complaints of left leg swelling pain. Pt denies any fevers or chills. admits ot calf pain TRAVEL OUTSIDE OF THE [place] IN LAST 30 DAYS: No - HPI Onset: Last week Onset/Duration: Persistent Quality of pain: Achy Severity: Mild Pain Level: 2 Associated symptoms: Leg swelling Exacerbated by: Walking Relieved by: Denies Similar symptoms previously: No Recently seen / treated by doctor: No - Related Data Allergies/Adverse Reactions: iodine [Iodine] Allergy (Intermediate, Verified 10/27/16 15:19) latex [Latex] Allergy (Intermediate, Verified 10/27/16 15:19) Hives ceftriaxone sodium [From Rocephin] Allergy (Mild, Verified 10/27/16 15:19) nitrofurantoin [From Macrobid] Allergy (Mild, Verified 10/27/16 15:19) Penicillins Allergy (Mild, Verified 10/27/16 15:19) amoxicillin Allergy (Verified 10/27/16 15:19) metronidazole [From Flagyl] Allergy (Verified 10/27/16 15:19) penicillinase Allergy (Verified 10/27/16 15:19) Past Medical History - Social History Smoking Status: Never Smoker Cigarette use (# per day): No Chew tobacco use (# tins/day): No Smoking Education Provided: No Family History: Reviewed & Not Pertinent - did not know her biologic parents Patient has suicidal ideation: No Patient has homicidal ideation: No - Past Medical History Cardiac Medical History: Reports: Hx Hypertension Denies: Hx Atrial Fibrillation, Hx Congestive Heart Failure, Hx Coronary Artery Disease, Hx DVT, Hx Heart Attack, Hx Hypercholesterolemia, Hx Peripheral Vascular Disease, Hx Pulmonary Embolism, Hx Heart Murmur Pulmonary Medical History: Denies: Hx Asthma, Hx COPD Neurological Medical History: Denies: Hx Seizures Endocrine Medical History: Reports: Hx Diabetes Mellitus Type 1, Hx Hypothyroidism - 2009. Denies: Hx Diabetes Mellitus Type 2, Hx Graves' Disease , Hx Hyperthyroidism Renal/ Medical History: Denies: Hx Ovarian Cysts, Hx Peritoneal Dialysis, Hx Pelvic Inflammatory Disease Malignancy Medical History: Denies: Hx Breast Cancer, Hx Cervical Cancer, Hx Ovarian Cancer GI Medical History: Denies: Hx Cirrhosis, Hx Gastroesophageal Reflux Disease, Hx Hepatitis Musculoskeltal Medical History: Denies Hx Arthritis Psychiatric Medical History: Reports: Hx Depression - post - , Hx Post Traumatic Stress Disorder - NICU with daughter 2014 Denies: Hx Bipolar Disorder, Hx Schizophrenia Infectious Medical History: Denies: Hx Hepatitis Past Surgical History: Reports: Hx Section, Hx Tubal Ligation. Denies : Hx Appendectomy, Hx Bowel Surgery, Hx Cholecystectomy, Hx Coronary Artery Bypass Graft, Hx Gastric Bypass Surgery, Hx Herniorrhaphy, Hx Hysterectomy, Hx Mastectomy, Hx Pacemaker, Hx Tonsillectomy - Immunizations Hx Diphtheria, Pertussis, Tetanus Vaccination: Yes Review of Systems - Review of Systems Notes: REVIEW OF SYSTEMS: CONSTITUTIONAL : Denies fever, chills, or sweats. Denies recent illness. EENT: Denies eye, ear, throat, or mouth pain or symptoms. Denies nasal or sinus congestion or discharge. Denies throat, tongue, or mouth swelling or difficulty swallowing. CARDIOVASCULAR: Denies chest pain. Denies palpitations or racing or irregular heart beat. Denies ankle edema. RESPIRATORY: Denies cough, cold, or chest congestion. Denies shortness of breath, difficulty breathing, or wheezing. GASTROINTESTINAL: Denies abdominal pain or distention. Denies nausea, vomiting , or diarrhea. Denies blood in vomitus, stools, or per rectum. Denies black, tarry stools. Denies constipation. GENITOURINARY: Denies difficulty urinating, painful urination, burning, frequency, blood in urine, or discharge. FEMALE GENITOURINARY: Denies vaginal bleeding, heavy or abnormal periods, irregular periods. Denies vaginal discharge or odor. MUSCULOSKELETAL: Admits to left leg edema SKIN: Denies rash, lesions or sores. HEMATOLOGIC : Denies easy bruising or bleeding. LYMPHATIC: Denies swollen, enlarged glands. NEUROLOGICAL: Denies confusion or altered mental status. Denies passing out or loss of consciousness. Denies dizziness or lightheadedness. Denies headache. Denies weakness or paralysis or loss of use of either side. Denies problems with gait or speech. Denies sensory loss, numbness, or tingling. Denies seizures. PSYCHIATRIC: Denies anxiety or stress. Denies depression, suicidal ideation, or homicidal ideation. ALL OTHER SYSTEMS REVIEWED AND NEGATIVE. PHYSICAL EXAMINATION: GENERAL: Well-appearing, well-nourished and in no acute distress. HEAD: Atraumatic, normocephalic. EYES: Pupils equal round and reactive to light, extraocular movements intact, conjunctiva are normal. ENT: Nares patent, oropharynx clear without exudates. Moist mucous membranes. NECK: Normal range of motion, supple without lymphadenopathy LUNGS: Breath sounds clear to auscultation bilaterally and equal. No wheezes rales or rhonchi. HEART: Regular rate and rhythm without murmurs ABDOMEN: Soft, nontender, nondistended abdomen. No guarding, no rebound. No masses appreciated. Female : deferred Musculoskeletal: Mild edema noted left lower extremity tender to palpation all throughout NEUROLOGICAL: Cranial nerves grossly intact. Normal speech, normal gait. Normal sensory, motor exams PSYCH: Normal mood, normal affect. SKIN: Warm, Dry, normal turgor, no rashes or lesions noted. Dictation was performed using [employer] voice recognition software Physical Exam - Vital signs Vitals: Temp Pulse Resp BP Pulse Ox 98.5 F 94 16 121/66 96 10/27/16 14:46 10/27/16 14:46 10/27/16 14:46 10/27/16 14:46 10/27/16 14:46 Course - Re-evaluation Re-evalutation: 10/27/16 15:23 Doppler pending at this time 10/27/16 16:30 Ultrasound was negative. Patient will be discharged home with close follow-up. I do not see any streaking at this time consistent with a cellulitis. Very close return precautions have been provided to the patient After performing a Medical Screening Examination, I estimate there is LOW risk for RUPTURED ESOPHAGUS, PNEUMOTHORAX, PULMONARY EMBOLISM, ACUTE CORONARY SYNDROME, OR THORACIC AORTIC DISSECTION, thus I consider the discharge disposition reasonable. I have reevaluated this patient multiple times and no significant life threatening changes are noted. The patient and I have discussed the diagnosis and risks, and we agree with discharging home with close follow-up. We also discussed returning to the Emergency Department immediately if new or worsening symptoms occur. We have discussed the symptoms which are most concerning (e.g., bloody sputum, worsening pain or shortness of breath) that necessitate immediate return. - Vital Signs Vital signs: Temp Pulse Resp BP Pulse Ox 98.5 F 94 18 121/66 96 10/27/16 14:46 10/27/16 14:46 10/27/16 15:19 10/27/16 14:46 10/27/16 14:46 - Diagnostic Test Radiology reviewed: Image reviewed, Reports reviewed - No acute abnormality Discharge - Discharge Clinical Impression: Edema of left lower extremity, Left leg pain Condition: Stable Disposition: HOME, SELF-CARE Instructions: Possible Evolving Leg DVT ([facility]) Additional Instructions: Please follow-up with your primary care physician for reevaluation 1-2 days or return immediately if there are any other concerns
--- NOTE | 2016-10-27 16:51 | RADIOLOGY REPORT (SQ) ---
EXAM DESCRIPTION: VENOUS UNILATERAL LOWER COMPLETED DATE/TIME: 10/27/2016 4:41 pm REASON FOR STUDY: LLE edema COMPARISON: None. TECHNIQUE: Dynamic and static moscoso scale and color images acquired of the left leg venous system. Se lected spectral images acquired with additional compression and augmentation maneuvers. The contralat eral common femoral vein and saphenofemoral junction were also imaged. Images stored on PACS. LIMITATIONS: None. FINDINGS: COMMON FEMORAL: Normal phasicity, compression and augmentation. No visualized echogenic ma terial on moscoso scale. No defects on color images. FEMORAL: Normal compression and augmentation. No visualized echogenic material on moscoso scale. No defe cts on color images. POPLITEAL: Normal compression, augmentation. No visualized echogenic material on moscoso scale. No defec ts on color images. CALF VESSELS: Normal compression, augmentation. No visualized echogenic material on moscoso scale. No de fects on color images. GSV and SSV: Normal compression, augmentation. No visualized echogenic material on moscoso scale. No def ects on color images. ANY DEEP VENOUS INSUFFICIENCY: Not evaluated. ANY EVIDENCE OF POPLITEAL CYST: No. OTHER: No other significant finding. CONTRALATERAL COMMON FEMORAL VEIN AND SAPHENOFEMORAL JUNCTION: Normal phasicity, compression and augmentation. No visualized echogenic material on moscoso scale. No de fects on color images. IMPRESSION: NO EVIDENCE DVT OR SVT IN THE LEFT LEG. TECHNICAL DOCUMENTATION: JOB ID: [id number] [employer]- All Rights Reserved
[2016-10-27 17:06] VITALS: BP 118/60
== END 2016-10-27 17:07 | disposition home or self-care (01) ==
LOC: ER 14:31
DX: R60.9 Edema, unspecified (principal); I10 Essential (primary) hypertension; E10.9 Type 1 diabetes mellitus without complications; E03.9 Hypothyroidism, unspecified; Z91.040 Latex allergy status; Z88.0 Allergy status to penicillin; Z98.51 Tubal ligation status
CPT/HCPCS: 93971; 99283

== ENCOUNTER 2016-11-12 13:22 | Emergency (ER) | payer MEDICAID ==
[2016-11-12] MEDS ORDERED: MORPHINE SULFATE 10 MG/ML INJ IV ONE (14:06)
[2016-11-12] MEDS ORDERED: ONDANSETRON HCL INJ/PF 4 MG/2 ML SDV IV ONE (14:06)
[2016-11-12] MEDS ORDERED: NORMAL SALINE 1000 ML 1,000 ML IV PRN (14:06)
[2016-11-12] MEDS: NORMAL SALINE 1000 ML 1,000 ML IV PRN ×2 (14:07→14:50)
--- NOTE | 2016-11-12 14:13 | ER Document Report ---
ED GI/ - General Chief Complaint: Abdominal Pain Stated Complaint: NAUSEA,DIZZY,ABDOMINAL PAIN Time Seen by Provider: 11/12/16 13:44 Mode of Arrival: Ambulatory Information source: Patient TRAVEL OUTSIDE OF THE [place] IN LAST 30 DAYS: No - HPI Patient complains to provider of: Abdominal pain, Diarrhea, Vomiting Onset: Yesterday Timing/Duration: Persistent, Worse Quality of pain: Achy, Fullness, Pressure Severity at maximum: Moderate Severity in ED: Moderate Pain Level: 3 Location: LLQ, RLQ Vaginal bleeding (Compared to normal period): None Associated symptoms: Diarrhea, Nausea, Vomiting Exacerbated by: Denies Relieved by: Denies Recently seen / treated by doctor: Yes Notes: 11/12/16 14:07 Patient is a 31-year-old female who is an insulin-dependent diabetic, recent hysterectomy 3 weeks ago, presents to the emergency room today complaining of nausea, vomiting and diarrhea with pain in her lower abdomen, mainly in the right lower quadrant, she denies any fever or chills, no dysuria or hematuria, no vaginal discharge or bleeding - Related Data Allergies/Adverse Reactions: iodine [Iodine] Allergy (Intermediate, Verified 11/12/16 13:26) latex [Latex] Allergy (Intermediate, Verified 11/12/16 13:26) Hives ceftriaxone sodium [From Rocephin] Allergy (Mild, Verified 11/12/16 13:26) nitrofurantoin [From Macrobid] Allergy (Mild, Verified 11/12/16 13:26) Penicillins Allergy (Mild, Verified 11/12/16 13:26) amoxicillin Allergy (Verified 11/12/16 13:26) metronidazole [From Flagyl] Allergy (Verified 11/12/16 13:26) penicillinase Allergy (Verified 11/12/16 13:26) Past Medical History - General Information source: Patient - Social History Smoking Status: Never Smoker Family History: Reviewed & Not Pertinent - did not know her biologic parents - Past Medical History Cardiac Medical History: Reports: Hx Hypertension Denies: Hx Atrial Fibrillation, Hx Congestive Heart Failure, Hx Coronary Artery Disease, Hx DVT, Hx Heart Attack, Hx Hypercholesterolemia, Hx Peripheral Vascular Disease, Hx Pulmonary Embolism, Hx Heart Murmur Pulmonary Medical History: Denies: Hx Asthma, Hx COPD Neurological Medical History: Denies: Hx Seizures Endocrine Medical History: Reports: Hx Diabetes Mellitus Type 1, Hx Hypothyroidism - 2009. Denies: Hx Diabetes Mellitus Type 2, Hx Graves' Disease , Hx Hyperthyroidism Renal/ Medical History: Denies: Hx Ovarian Cysts, Hx Peritoneal Dialysis, Hx Pelvic Inflammatory Disease Malignancy Medical History: Denies: Hx Breast Cancer, Hx Cervical Cancer, Hx Ovarian Cancer GI Medical History: Denies: Hx Cirrhosis, Hx Gastroesophageal Reflux Disease, Hx Hepatitis Musculoskeltal Medical History: Denies Hx Arthritis Psychiatric Medical History: Reports: Hx Depression - post - , Hx Post Traumatic Stress Disorder - NICU with daughter 2014 Denies: Hx Bipolar Disorder, Hx Schizophrenia Infectious Medical History: Denies: Hx Hepatitis Past Surgical History: Reports: Hx Section, Hx Tubal Ligation. Denies : Hx Appendectomy, Hx Bowel Surgery, Hx Cholecystectomy, Hx Coronary Artery Bypass Graft, Hx Gastric Bypass Surgery, Hx Herniorrhaphy, Hx Hysterectomy, Hx Mastectomy, Hx Pacemaker, Hx Tonsillectomy - Immunizations Hx Diphtheria, Pertussis, Tetanus Vaccination: Yes Review of Systems - Review of Systems Constitutional: No symptoms reported EENT: No symptoms reported Cardiovascular: No symptoms reported Respiratory: No symptoms reported Gastrointestinal: See HPI Genitourinary: No symptoms reported Female Genitourinary: No symptoms reported Musculoskeletal: No symptoms reported Skin: No symptoms reported Hematologic/Lymphatic: No symptoms reported Neurological/Psychological: No symptoms reported -: Yes All other systems reviewed and negative Physical Exam - Vital signs Vitals: Temp Pulse Resp BP Pulse Ox 98.3 F 126 H 22 H 188/107 H 100 11/12/16 13:26 11/12/16 13:26 11/12/16 13:26 11/12/16 13:26 11/12/16 13:26 Interpretation: Hypertensive, Tachycardic - General General appearance: Appears well, Alert - HEENT Head: Normocephalic, Atraumatic Eyes: Normal Pupils: PERRL - Respiratory Respiratory status: No respiratory distress Chest status: Nontender Breath sounds: Normal Chest palpation: Normal - Cardiovascular Rhythm: Regular Heart sounds: Normal auscultation Murmur: No - Abdominal Inspection: Morbidly Obese Distension: No distension Bowel sounds: Normal Tenderness: Tender - Right lower quadrant and left lower quadrant Organomegaly: No organomegaly - Back Back: Normal, Nontender - Extremities General upper extremity: Normal inspection, Nontender, Normal color, Normal ROM , Normal temperature General lower extremity: Normal inspection, Nontender, Normal color, Normal ROM , Normal temperature, Normal weight bearing. No: Aj's sign - Neurological Neuro grossly intact: Yes Cognition: Normal Orientation: AAOx4 [place]ho[place] Coma Scale Eye Opening: Spontaneous [place] Coma Scale Verbal: Oriented [place] Coma Scale Motor: Obeys Commands Jho[place] Coma Scale Total: 15 Speech: Normal Motor strength normal: LUE, RUE, LLE, RLE Sensory: Normal - Psychological Associated symptoms: Normal affect, Normal mood - Skin Skin Temperature: Warm Skin Moisture: Dry Skin Color: Normal Course - Re-evaluation Re-evalutation: 11/12/16 17:43 Patient resting comfortably on stretcher, lab and imaging findings discussed with patient at bedside which are relatively unremarkable except for signs of possible urinary tract infection, she was provided with additional medication for the headache that she is now experiencing, as well as prescription for pain meds nausea meds and antibiotics, advised to follow-up with her primary care provider or return if symptoms worsen, patient acknowledges understanding and agreement with this plan - Vital Signs Vital signs: Temp Pulse Resp BP Pulse Ox 98.3 F 126 H 21 H 124/77 94 11/12/16 13:26 11/12/16 13:26 11/12/16 17:00 11/12/16 16:31 11/12/16 17:00 - Laboratory Result Diagrams: 11/12/16 14:05 11/12/16 14:05 Laboratory results interpreted by me: 11/12/16 11/12/16 11/12/16 14:05 14:05 15:10 Plt Count 491 H Calcium 11.1 H Total Protein 8.4 H Urine Protein 100 H Urine Glucose (UA) 50 H Urine Blood SMALL H Ur Leukocyte Esterase SMALL H - Diagnostic Test Radiology reviewed: Image reviewed, Reports reviewed Discharge - Discharge Clinical Impression: Urinary tract infection Qualifiers: Urinary tract infection type: site unspecified Hematuria presence: without hematuria Qualified Code(s): N39.0 - Urinary tract infection, site not specified Condition: Stable Disposition: HOME, SELF-CARE Instructions: Urinary Tract Infection ([facility]) Additional Instructions: Follow up with your primary care provider in one to 2 days. Return to the emergency room immediately if symptoms worsen or any additional concerns. Prescriptions: Ondansetron [Zofran Odt 4 mg Tablet] 1 - 2 tab PO Q4H #10 tab.rapdis Oxycodone HCl/Acetaminophen [Percocet 5-325 mg Tablet] 1 - 2 tab PO ASDIR PRN # 15 tablet PRN Reason: Sulfamethoxazole/Trimethoprim [Bactrim Ds Tablet] 1 each PO BID #20 tablet
[2016-11-12 14:28] LABS: VENOUS BLOOD BASE EXCESS 3.2 mmol/L; VENOUS BLOOD HCO3 28.3 mmol/L (20-32); VENOUS BLOOD PCO2 44.6 mmHg (35-63); VENOUS BLOOD PH 7.42 (7.30-7.42)
[2016-11-12 14:30] LABS: ABSOLUTE BASOPHILS # (AUTO) 0.1 10^3/uL (0.0-0.2); ABSOLUTE EOSINOPHILS # (AUTO) 0.3 10^3/uL (0.0-0.6); ABSOLUTE LYMPHOCYTES (AUTO) 2.8 10^3/uL (0.5-4.7); ABSOLUTE MONOCYTES (AUTO) 0.6 10^3/uL (0.1-1.4); ABSOLUTE NEUT (AUTO) 6.8 10^3/uL (1.7-8.2); BASOPHILS % (AUTO) 0.7 % (0-2); EOSINOPHILS % (AUTO) 2.5 % (0-6); HEMATOCRIT 39.9 % (36.0-47.0); HEMOGLOBIN 14.2 g/dL (12.0-15.5); HGB HCT DIFFERENCE 2.7; LYMPHOCYTES % (AUTO) 26.3 % (13-45); MEAN CORPUSCULAR HEMOGLOBIN 31.7 pg (27.0-33.4); MEAN CORPUSCULAR HGB CONC 35.6 g/dL (32.0-36.0); MEAN CORPUSCULAR VOLUME 89 fl (80-97); MONOCYTES % (AUTO) 5.7 % (3-13); RED BLOOD COUNT 4.48 10^6/uL (3.72-5.28); RED CELL DISTRIBUTION WIDTH 13.3 % (11.5-14.0); SEGMENTED NEUTROPHILS % (AUTO) 64.8 % (42-78); WHITE BLOOD COUNT 10.5 10^3/uL (4.0-10.5)
[2016-11-12 14:47] LABS: ALANINE AMINOTRANSFERASE 48 U/L (9-52); ALBUMIN 4.8 g/dL (3.5-5.0); ALKALINE PHOSPHATASE 98 U/L (38-126); ANION GAP 17 (5-19); ASPARTATE AMINO TRANSFERASE 29 U/L (14-36); BILIRUBIN,DIRECT 0.4 mg/dL (0.0-0.4); BILIRUBIN,TOTAL 0.6 mg/dL (0.2-1.3); BLOOD UREA NITROGEN 14 mg/dL (7-20); CALCIUM 11.1 mg/dL (8.4-10.2); CARBON DIOXIDE 23 mmol/L (22-30); CHLORIDE 100 mmol/L (98-107); CREATININE RESULT 0.64 mg/dL (0.52-1.25); GLUCOSE 75 mg/dL (75-110); LIPASE 81.4 U/L (23-300); POTASSIUM 4.1 mmol/L (3.6-5.0); SODIUM 140.1 mmol/L (137-145); TOTAL PROTEIN 8.4 g/dL (6.3-8.2)
--- NOTE | 2016-11-12 15:38 | EKG REPORT ---
SEVERITY:- ABNORMAL ECG - SINUS TACHYCARDIA VENTRICULAR PREMATURE COMPLEX CONSIDER LEFT VENTRICULAR HYPERTROPHY : Confirmed by: Yandy Baird 12-Nov-2016 15:37:52
[2016-11-12 15:49] LABS: APPEARANCE,URINE SLIGHTLY-CLOUDY; BILIRUBIN,URINE NEGATIVE (NEGATIVE); GLUCOSE, URINE 50 mg/dL (NEGATIVE); KETONES,URINE NEGATIVE (NEGATIVE); LEUKOCYTE ESTERASE,URINE SMALL (NEGATIVE); NITRITE,URINE NEGATIVE (NEGATIVE); PROTEIN,URINE 100 mg/dL (NEGATIVE); URINE SPECIFIC GRAVITY 1.014; UROBILINOGEN,URINE NEGATIVE mg/dL (<2.0)
--- NOTE | 2016-11-12 17:14 | RADIOLOGY REPORT (SQ) ---
EXAM DESCRIPTION: CT ABD/PELVIS ORAL ONLY COMPLETED DATE/TIME: 11/12/2016 4:49 pm REASON FOR STUDY: lower abd pain COMPARISON: None. TECHNIQUE: CT scan of the abdomen and pelvis performed without intravenous or oral contrast. Images reviewed with lung, soft tissue, and bone windows. Reconstructed coronal and sagittal MPR images revi ewed. All images stored on PACS. All CT scanners at this facility use dose modulation, iterative reconstruction, and/or weight based d osing when appropriate to reduce radiation dose to as low as reasonably achievable (ALARA). [facility]: Dose Right [facility]: CareDose [facility]: Dose Right [facility]: Teradose 4D [facility]: [employer] RADIATION DOSE: Up-to-date CT equipment and radiation dose reduction techniques were employed. CTDIv ol: 28.5 mGy. DLP: 1624 mGy-cm.mGy. LIMITATIONS: Patient was only able to drink a couple sips of contrast FINDINGS: LOWER CHEST: No significant findings. No nodules or infiltrates. NON-CONTRASTED LIVER, SPLEEN, ADRENALS: Evaluation limited by lack of IV contrast. No identified sign ificant masses. PANCREAS: No masses. No peripancreatic inflammatory changes. GALLBLADDER: No identified stones by CT criteria. No inflammatory changes to suggest cholecystitis. RIGHT KIDNEY AND URETER: No suspicious masses. Assessment limited by lack of IV contrast. No signif icant calcifications. No hydronephrosis or hydroureter. LEFT KIDNEY AND URETER: No suspicious masses. Assessment limited by lack of IV contrast. No signifi cant calcifications. No hydronephrosis or hydroureter. AORTA AND RETROPERITONEUM: No aneurysm. No retroperitoneal masses or adenopathy. BOWEL AND PERITONEAL CAVITY: No obvious masses or inflammatory changes. No free fluid. APPENDIX: Normal. PELVIS, BLADDER, AND ABDOMINAL WALL:No abnormal masses. No free fluid. Bladder normal. Ovaries appea r normal. BONES: No significant findings. OTHER: No other significant finding. IMPRESSION: Normal noncontrast CT of the abdomen and pelvis. There is no finding to explain the pat ient's pain. COMMENT: Quality ID # [id number]: Final reports with documentation of one or more dose reduction techniques (e.g., Automated exposure control, adjustment of the mA and/or kV according to patient size, use of iterative reconstruction technique) TECHNICAL DOCUMENTATION: JOB ID: [id number]- All Rights Reserved
[2016-11-12] MEDS ORDERED: METOCLOPRAMIDE HCL INJ/PF 10 MG/2 ML SDV IV ONE (17:40)
[2016-11-12] MEDS ORDERED: KETOROLAC TROMETHAMINE INJ/PF 30 MG/1 ML SDV IV ONE (17:40)
[2016-11-12] MEDS ORDERED: DIPHENHYDRAMINE HCL 50 MG/ML VIAL IV ONE (17:40)
[2016-11-12 18:38] VITALS: BP 132/62
== END 2016-11-12 18:40 | disposition home or self-care (01) ==
LOC: ER 13:22
DX: N39.0 Urinary tract infection, site not specified (principal); R10.9 Unspecified abdominal pain; R42 Dizziness and giddiness; R11.2 Nausea with vomiting, unspecified; R19.7 Diarrhea, unspecified; E11.9 Type 2 diabetes mellitus without complications; Z79.4 Long term (current) use of insulin; R10.30 Lower abdominal pain, unspecified; R10.31 Right lower quadrant pain; Z98.890 Other specified postprocedural states
CPT/HCPCS: 93005; 99284; 96361; 96374; 96375; 36415; 87086; 82962; 83690; 85025; 80053; 81001; 82803; 74176; 93010; J1200; J1885; J2765; J2270; J2405; J7030

== ENCOUNTER 2017-03-24 18:59 | Observation (INO) | payer MEDICAID ==
[2017-03-24] MEDS ORDERED: ASPIRIN 81 MG TABLET, CHEWABLE PO ONE (20:16)
[2017-03-24] MEDS ORDERED: NORMAL SALINE 1000 ML 1,000 ML IV ONE (20:17)
[2017-03-24] MEDS ORDERED: DIPHENHYDRAMINE HCL 50 MG/ML VIAL IV ONE (20:18)
--- NOTE | 2017-03-24 20:51 | RADIOLOGY REPORT (SQ) ---
EXAM DESCRIPTION: CHEST SINGLE VIEW COMPLETED DATE/TIME: 03/24/2017 8:39 pm REASON FOR STUDY: SOB COMPARISON: 02/12/2015. EXAM PARAMETERS: NUMBER OF VIEWS: One view. TECHNIQUE: Single frontal radiographic view of the chest acquired. RADIATION DOSE: NA LIMITATIONS: None. FINDINGS: LUNGS AND PLEURA: No opacities, masses or pneumothorax. No pleural effusion. MEDIASTINUM AND HILAR STRUCTURES: No masses. Contour normal. HEART AND VASCULAR STRUCTURES: Heart normal in size. Normal vasculature. BONES: No acute findings. HARDWARE: None in the chest. OTHER: No other significant finding. IMPRESSION: NO ACUTE RADIOGRAPHIC FINDING IN THE CHEST. TECHNICAL DOCUMENTATION: JOB ID: [id number] [employer]- All Rights Reserved
[2017-03-24 21:01] LABS: ABSOLUTE EOSINOPHILS # (AUTO) 0.2 10^3/uL (0.0-0.6); ABSOLUTE LYMPHOCYTES (AUTO) 2.5 10^3/uL (0.5-4.7); ABSOLUTE MONOCYTES (AUTO) 0.4 10^3/uL (0.1-1.4); ABSOLUTE NEUT (AUTO) 4.5 10^3/uL (1.7-8.2); BASOPHILS % (AUTO) 0.4 % (0-2); EOSINOPHILS % (AUTO) 2.5 % (0-6); HEMATOCRIT 41.2 % (36.0-47.0); MEAN CORPUSCULAR HEMOGLOBIN 31.1 pg (27.0-33.4); MEAN CORPUSCULAR HGB CONC 34.1 g/dL (32.0-36.0); MEAN CORPUSCULAR VOLUME 91 fl (80-97); MONOCYTES % (AUTO) 5.7 % (3-13); PLATELET COUNT 366 10^3/uL (150-450); RED BLOOD COUNT 4.51 10^6/uL (3.72-5.28); RED CELL DISTRIBUTION WIDTH 13.9 % (11.5-14.0); SEGMENTED NEUTROPHILS % (AUTO) 59.4 % (42-78); TOTAL CELLS COUNTED % (AUTO) 100 %; WHITE BLOOD COUNT 7.6 10^3/uL (4.0-10.5)
[2017-03-24 21:34] LABS: ALANINE AMINOTRANSFERASE 51 U/L (9-52); ALBUMIN 4.1 g/dL (3.5-5.0); ALKALINE PHOSPHATASE 102 U/L (38-126); ANION GAP 12 (5-19); ASPARTATE AMINO TRANSFERASE 28 U/L (14-36); BILIRUBIN,DIRECT 0.2 mg/dL (0.0-0.4); BILIRUBIN,TOTAL 0.3 mg/dL (0.2-1.3); BLOOD UREA NITROGEN 18 mg/dL (7-20); CALCIUM 10.2 mg/dL (8.4-10.2); CARBON DIOXIDE 28 mmol/L (22-30); CHLORIDE 96 mmol/L (98-107); CREATINE KINASE 26 U/L (30-135); GLUCOSE 275 mg/dL (75-110); POTASSIUM 4.5 mmol/L (3.6-5.0); SODIUM 136.3 mmol/L (137-145)
[2017-03-24 21:48] LABS: CREATINE KINASE MB < 0.22 ng/mL (<4.55); TROPONIN I < 0.012 ng/mL
[2017-03-24] MEDS ORDERED: NITROGLYCERIN 2% OINTMENT 1 GM PACKET TP ONE (23:47)
--- NOTE | 2017-03-25 00:14 | ER Document Report ---
ED General - General Chief Complaint: Chest Pain Stated Complaint: CHEST PAIN Time Seen by Provider: 03/24/17 20:16 Notes: Patient is a 32-year-old female who presents with complaint of chest pain and feeling unwell today. She knows her blood pressure was high and her heart was racing therefore she came to the ER. said that she did pass out once. Patient denies feeling very short of breath. She denies any fevers or vomiting. She has had some mild nausea. No previous history of heart disease. She does have history of insulin-dependent diabetes, hypertension, high cholesterol, and family history of coronary disease at a young age. She denies recent leg pain or leg swelling. No history of DVT or PE. She says the pain is mostly in the anterior chest. It does not radiate to the back. It does go into the right arm. Nothing seems to make the pain better or worse. TRAVEL OUTSIDE OF THE [place] IN LAST 30 DAYS: No - Related Data Allergies/Adverse Reactions: iodine [Iodine] Allergy (Intermediate, Verified 03/24/17 19:00) latex [Latex] Allergy (Intermediate, Verified 03/24/17 19:00) Hives ceftriaxone sodium [From Rocephin] Allergy (Mild, Verified 03/24/17 19:00) nitrofurantoin [From Macrobid] Allergy (Mild, Verified 03/24/17 19:00) Penicillins Allergy (Mild, Verified 03/24/17 19:00) amoxicillin Allergy (Verified 03/24/17 19:00) metronidazole [From Flagyl] Allergy (Verified 03/24/17 19:00) penicillinase Allergy (Verified 03/24/17 19:00) Past Medical History - Social History Smoking Status: Never Smoker Chew tobacco use (# tins/day): No Frequency of alcohol use: None Drug Abuse: None Family History: Reviewed & Not Pertinent - did not know her biologic parents Patient has suicidal ideation: No Patient has homicidal ideation: No - Past Medical History Cardiac Medical History: Reports: Hx Hypertension Denies: Hx Atrial Fibrillation, Hx Congestive Heart Failure, Hx Coronary Artery Disease, Hx DVT, Hx Heart Attack, Hx Hypercholesterolemia, Hx Peripheral Vascular Disease, Hx Pulmonary Embolism, Hx Heart Murmur Pulmonary Medical History: Denies: Hx Asthma, Hx COPD Neurological Medical History: Denies: Hx Seizures Endocrine Medical History: Reports: Hx Diabetes Mellitus Type 1, Hx Hypothyroidism - 2010. Denies: Hx Diabetes Mellitus Type 2, Hx Graves' Disease , Hx Hyperthyroidism Renal/ Medical History: Denies: Hx Ovarian Cysts, Hx Peritoneal Dialysis, Hx Pelvic Inflammatory Disease Malignancy Medical History: Denies: Hx Breast Cancer, Hx Cervical Cancer, Hx Ovarian Cancer GI Medical History: Denies: Hx Cirrhosis, Hx Gastroesophageal Reflux Disease, Hx Hepatitis Musculoskeltal Medical History: Denies Hx Arthritis Psychiatric Medical History: Reports: Hx Depression - post - , Hx Post Traumatic Stress Disorder - NICU with daughter 2014 Denies: Hx Bipolar Disorder, Hx Schizophrenia Infectious Medical History: Denies: Hx Hepatitis Past Surgical History: Reports: Hx Section, Hx Tubal Ligation. Denies : Hx Appendectomy, Hx Bowel Surgery, Hx Cholecystectomy, Hx Coronary Artery Bypass Graft, Hx Gastric Bypass Surgery, Hx Herniorrhaphy, Hx Hysterectomy, Hx Mastectomy, Hx Pacemaker, Hx Tonsillectomy - Immunizations Hx Diphtheria, Pertussis, Tetanus Vaccination: Yes Review of Systems - Review of Systems Notes: My Normal Review Basic REVIEW OF SYSTEMS: CONSTITUTIONAL : Denies fever, chills, or sweats. Denies recent illness. EENT: Denies eye, ear, throat, or mouth pain or symptoms. Denies nasal or sinus congestion. CARDIOVASCULAR: Chest pain RESPIRATORY: Denies cough, cold, or chest congestion. Denies shortness of breath, difficulty breathing, or wheezing. GASTROINTESTINAL: Denies abdominal pain. Denies nausea, vomiting, or diarrhea. Denies constipation. Last BM: MUSCULOSKELETAL: Denies neck or back pain or joint pain or swelling. SKIN: Denies rash or skin lesions. NEUROLOGICAL: Syncopal episode. Denies headache. Denies weakness or paralysis or loss of use of either side. Denies problems with gait or speech. Denies sensory or motor loss. ALL OTHER SYSTEMS REVIEWED AND NEGATIVE. Physical Exam - Vital signs Vitals: Temp Pulse Resp BP Pulse Ox 98.5 F 128 H 20 156/115 H 100 03/24/17 19:15 03/24/17 19:15 03/24/17 19:15 03/24/17 19:15 03/24/17 19:15 - Notes Notes: General Appearance: Well nourished, alert, cooperative, no acute distress, no obvious discomfort. Vitals: reviewed, See vital signs table. Head: no swelling or tenderness to the head Eyes: PERRL, EOMI, Conjuctiva clear Mouth: No decreasd moisture Neck: Supple, no neck tenderness Lungs: No wheezing, No rales, No rhonci, No accessory muscle use, good air exchange bilaterally. Heart: Tachycardic rate, Regular rythm, No murmur, no rub Abdomen: Normal BS, soft, No rigidity, No abdominal tenderness, No guarding, no rebound, no abdominal masses, no organomegaly Extremities: strength 5/5 in all extremities, good pulses in all extremities, no swelling or tenderness in the extremities, no edema. Skin: warm, dry, appropriate color, no rash Neuro: speech clear, oriented x 3, normal affect, responds appropriately to questions. Course - Re-evaluation Re-evalutation: 03/25/17 07:24 Patient of the chest pain. She also has some tachycardia and hypertension. D- dimer and noncontrasted CT scan of the chest were negative and therefore it is extremely unlikely the patient have a dissection causing her symptoms. My concern is mainly from possibly coronary disease being the patient has very strong family history of coronary disease at a young age, she has a history of type 1 diabetes, obesity, hypertension, high cholesterol. Patient is agreeable staying. I did speak with Dr. Heredia who agrees to evaluate the patient. Dictation of this chart was performed using voice recognition software; therefore, there may be some unintended grammatical errors. - Vital Signs Vital signs: Temp Pulse Resp BP Pulse Ox 98.4 F 118 H 15 136/76 H 96 03/25/17 06:57 03/24/17 20:13 03/25/17 06:56 03/25/17 06:57 03/25/17 06:56 - Laboratory Result Diagrams: 03/24/17 20:48 03/24/17 20:48 Laboratory results interpreted by me: 03/24/17 03/25/17 20:48 02:03 Sodium 136.3 L Chloride 96 L Glucose 275 H POC Glucose 263 H Creatine Kinase 26 L - EKG Interpretation by Me Additional EKG results interpreted by me: 03/25/17 00:14 EKG is reviewed and interpreted by me. EKG shows sinus tachycardia with rate of [address] segment elevation or depression. No ischemic T-wave inversions. ND interval, QRS duration, QTc intervals are within normal range. Old EKG for comparison is from November 12, 2016. 03/25/17 00:43 EKG #2 is reviewed and interpreted by me. EKG shows sinus rhythm with rate of [address] segment elevation. Minimal ST segment depression in lead V5. Small T-wave inversion in lead aVL. ND interval, QRS duration, QTc intervals are within normal range. Discharge - Discharge Clinical Impression: Chest pain Qualifiers: Chest pain type: unspecified Qualified Code(s): R07.9 - Chest pain, unspecified HTN (hypertension) Qualifiers: Hypertension type: unspecified Qualified Code(s): I10 - Essential (primary) hypertension Condition: Stable Disposition: ADMITTED OBSERVATION Admitting Provider: Hospitalist Unit Admitted: Telemetry
[2017-03-25 01:04] LABS: URINE AMPHETAMINES SCREEN NEGATIVE; URINE BARBITURATES SCREEN NEGATIVE; URINE BENZODIAZEPINES SCREEN NEGATIVE; URINE COCAINE SCREEN NEGATIVE; URINE MARIJUANA (THC) SCREEN NEGATIVE; URINE METHADONE SCREEN NEGATIVE; URINE PHENCYCLIDINE SCREEN NEGATIVE
[2017-03-25] MEDS ORDERED: LANSOPRAZOLE 15 MG TAB.RAP.DR PO ONE (01:44)
[2017-03-25] MEDS ORDERED: NITROGLYCERIN 0.4 MG/TAB 25 TAB/BOTTLE SL PRN (01:44)
[2017-03-25] MEDS ORDERED: ENOXAPARIN SODIUM INJ 120 MG/0.8 ML DISP.SYRIN SUBCUT SCH (01:45)
[2017-03-25] MEDS ORDERED: GLUCAGON,HUMAN RECOMB 1 MG INJ IM PRN (01:51)
[2017-03-25] MEDS ORDERED: DEXTROSE 40% GEL 15 GM TUBE PO PRN ×2 (01:51)
[2017-03-25] MEDS ORDERED: DEXTROSE 50%-WATER 25 GM/50 ML DISP.SYRIN IV PRN ×2 (01:51)
[2017-03-25] MEDS ORDERED: ONDANSETRON HCL INJ/PF 4 MG/2 ML SDV ONE (02:07)
[2017-03-25] MEDS ORDERED: ONDANSETRON HCL INJ/PF 4 MG/2 ML SDV IV ONE (02:11)
[2017-03-25] MEDS ORDERED: NORMAL SALINE 1000 ML 1,000 ML IV ONE (02:12)
[2017-03-25] MEDS ORDERED: FAMOTIDINE INJ/PF 20 MG/2 ML SDV IV ONE (02:12)
[2017-03-25] MEDS ORDERED: LORAZEPAM INJ 2 MG/1 ML VIAL IV ONE (02:13)
--- NOTE | 2017-03-25 02:15 | RADIOLOGY REPORT (SQ) ---
EXAM DESCRIPTION: CT CHEST WITHOUT CONTRAST CLINICAL HISTORY: chest pain COMPARISON: None Available. TECHNIQUE: Axial CT images of the chest without IV contrast from the thoracic inlet through the diaphragm. FINDINGS: Chest: No abnormalities of visualized thyroid gland. Great vessels have normal anatomic configuration. No cardiomegaly, pericardial effusion, or coronary artery atherosclerosis. No mediastinal lymphadenopathy identified. Incidental note of an azygos lobe. No abnormalities of visualized esophagus. Lung windows demonstrate no consolidation, pneumothorax, or pleural effusion. No abnormalities of visualized trachea. Limited images of the upper abdomen demonstrate no abnormalities of the spleen, pancreas, or gallbladder. Decreased density throughout the liver. DLP: 725.39 mGy-cm IMPRESSION: 1. No acute pulmonary process identified. 2. Hepatic steatosis. This exam was performed according to our departmental dose-optimization program, which includes automated exposure control, adjustment of the mA and/or kV according to patient size and/or use of iterative reconstruction technique.
[2017-03-25] MEDS ORDERED: ATORVASTATIN CALCIUM 40 MG TABLET PO ONE (02:30)
--- NOTE | 2017-03-25 05:45 | RADIOLOGY REPORT (SQ) ---
EXAM DESCRIPTION: U/S ABDOMEN LIMITED W/O DOP CLINICAL HISTORY: RUQ PAIN COMPARISON: None. TECHNIQUE: Real-time sonographic images of the right upper abdomen were obtained using a curved multihertz transducer. FINDINGS: The visualized portions of the pancreas are unremarkable. The visualized portions of the aorta and IVC are unremarkable. The liver has normal contour and increased echogenicity. Common bile duct measures 0.3 cm. Hepatopedal flow in the portal vein. The gallbladder has a normal appearance. No gallstones identified. No wall thickening or pericholecystic fluid. The right kidney measures 11.5 cm in length. No hydronephrosis, solid renal mass, or shadowing calculi. IMPRESSION: 1. No gallstones identified. 2. Hepatic steatosis.
[2017-03-25] MEDS ORDERED: LEVOTHYROXINE SODIUM 0.15 MG TABLET PO SCH (08:00)
--- NOTE | 2017-03-25 08:03 | EKG REPORT ---
SEVERITY:- ABNORMAL ECG - SINUS TACHYCARDIA PROBABLE LEFT ATRIAL ABNORMALITY NONSPECIFIC T ABNORMALITIES, LATERAL LEADS : Confirmed by: Andrew Gallego MD 25-Mar-2017 08:02:44
--- NOTE | 2017-03-25 08:04 | EKG REPORT ---
SEVERITY:- ABNORMAL ECG - SINUS TACHYCARDIA LVH : Confirmed by: Andrew Gallego MD 25-Mar-2017 08:03:17
[2017-03-25 08:05] LABS: CHOLESTEROL 226.65 mg/dL (0-200); TRIGLYCERIDES 334 mg/dL (<150)
[2017-03-25 08:20] LABS: DIRECT LDL 168 mg/dL (<100)
[2017-03-25 08:28] LABS: CREATINE KINASE MB < 0.22 ng/mL (<4.55); TROPONIN I < 0.012 ng/mL; VLDL CHOLESTEROL 66.8 mg/dL (10-31)
--- NOTE | 2017-03-25 08:56 | PDOC H&P ---
History of Present Illness Admission Date/PCP: 03/25/17 02:05 History of Present Illness: MIGUELINA CHRISTINE is a 32 year old female with past medical history of insulin- dependent diabetes mellitus, hypothyroidism, hypertension, hyperlipidemia who presents emergency department complaint of chest pain. Patient was found to be hypertensive and tachycardic on presentation. She reports she is having right- sided chest pain that radiates to her right arm. Patient's initial troponin is negative but she is found to have some mild T-wave depression in lead I and aVL. She reports that she has been working out and eating better and has been having a weight loss of about 65 pounds. She reports that her blood sugars have been quite low between 30 and 50. She reports taking a glucose tablet prior to presenting to the emergency department. She reports she has been having some dizziness dizziness and nausea. She reports that she is essentially been unable to eat for the last several days due to her discomfort. Past Medical History Cardiac Medical History: Reports: Hyperlipidema, Hypertension Denies: Atrial Fibrillation, Congestive Heart Failure, Coronary Artery Disease, DVT, Myocardial Infarction, Peripheral Vascular Disease, Pulmonary Embolism, Heart Murmur Pulmonary Medical History: Denies: Asthma, Chronic Obstructive Pulmonary Disease (COPD) Neurological Medical History: Denies: Seizures Endocrine Medical History: Reports: Diabetes Mellitus Type 1, Hypothyroidism - 2009 Denies: Diabetes Mellitus Type 2, Hyperthyroidism Malignancy Medical History: Denies: Breast Cancer, Cervical Cancer, Ovarian Cancer GI Medical History: Denies: Cirrhosis, Gastroesophageal Reflux Disease, Hepatitis Musculoskeltal Medical History: Denies: Arthritis Psychiatric Medical History: Reports: Depression - post - , Post Traumatic Stress Disorder - NICU with daughter 2014 Denies: Bipolar Disorder Past Surgical History Past Surgical History: Reports: Section, Hysterectomy, Other - Panniculectomy Denies: Appendectomy, Cholecystectomy, Coronary Artery Bypass Graft, Gastric Bypass Surgery, Herniorrhaphy, Mastectomy, Pacemaker, Tonsillectomy Social History Smoking Status: Never Smoker Frequency of Alcohol Use: None Hx Recreational Drug Use: No Drugs: None Hx Prescription Drug Abuse: No - Advance Directive Resuscitation Status: Full Code Surrogate healthcare decision maker:: Kojo Christine, Family History Family History: CAD, DM, Other - Congenital heart defects and her children Parental Family History Reviewed: Yes Children Family History Reviewed: Yes Sibling(s) Family History Reviewed.: Yes Medication/Allergy Home Medications: Insulin Aspart [Novolog Flexpen] 15 units SUBCUT WBRKFST 07/02/16 Insulin Aspart [Novolog Flexpen] 15 units SUBCUT WLUNCH 07/02/16 Insulin Aspart [Novolog Flexpen] 15 units SUBCUT WSUPPER 07/02/16 Insulin Detemir [Levemir Flextouch] 35 units SUBCUT BID 07/02/16 Levothyroxine Sodium [Synthroid 0.15 mg Tablet] 150 mcg PO QAM 07/02/16 Nifedipine [Nifedipine ER] 30 mg PO BID 07/02/16 Allergies/Adverse Reactions: iodine [Iodine] Allergy (Intermediate, Verified 03/24/17 19:00) latex [Latex] Allergy (Intermediate, Verified 03/24/17 19:00) Hives ceftriaxone sodium [From Rocephin] Allergy (Mild, Verified 03/24/17 19:00) nitrofurantoin [From Macrobid] Allergy (Mild, Verified 03/24/17 19:00) Penicillins Allergy (Mild, Verified 03/24/17 19:00) amoxicillin Allergy (Verified 03/24/17 19:00) metronidazole [From Flagyl] Allergy (Verified 03/24/17 19:00) penicillinase Allergy (Verified 03/24/17 19:00) Review of Systems Constitutional: PRESENT: anorexia, weight loss. ABSENT: chills, fever(s), headache(s), weight gain Eyes: ABSENT: visual disturbances Ears: ABSENT: hearing changes Cardiovascular: PRESENT: chest pain, dyspnea on exertion. ABSENT: edema, orthropnea, palpitations Respiratory: ABSENT: cough, dyspnea, hemoptysis, sputum Gastrointestinal: PRESENT: nausea, vomiting. ABSENT: abdominal pain, constipation, diarrhea, hematemesis, hematochezia, melena Genitourinary: ABSENT: dysuria, hematuria Musculoskeletal: ABSENT: joint swelling Integumentary: ABSENT: rash, wounds Neurological: ABSENT: abnormal gait, abnormal speech, confusion, dizziness, focal weakness, syncope Psychiatric: ABSENT: anxiety, depression, homidical ideation, suicidal ideation Endocrine: ABSENT: cold intolerance, heat intolerance, polydipsia, polyuria Hematologic/Lymphatic: ABSENT: easy bleeding, easy bruising Physical Exam Vital Signs: Temp Pulse Resp BP Pulse Ox 98.4 F 118 H 15 136/76 H 96 03/25/17 06:57 03/24/17 20:13 03/25/17 06:56 03/25/17 06:57 03/25/17 06:56 General appearance: PRESENT: mild distress, obese, well-developed, well- nourished Head exam: PRESENT: atraumatic, normocephalic Eye exam: PRESENT: conjunctiva pink, EOMI, PERRLA. ABSENT: scleral icterus Ear exam: PRESENT: normal external ear exam Mouth exam: PRESENT: dry mucosa, tongue midline Neck exam: PRESENT: thyromegaly. ABSENT: JVD, lymphadenopathy, tracheal deviation Respiratory exam: PRESENT: clear to auscultation rachael, unlabored. ABSENT: rales , rhonchi, tachypnea, wheezes Cardiovascular exam: PRESENT: RRR, +S1, +S2, tachycardia. ABSENT: diastolic murmur, rubs, systolic murmur Pulses: PRESENT: normal dorsalis pedis pul Vascular exam: PRESENT: normal capillary refill GI/Abdominal exam: PRESENT: normal bowel sounds, soft, tenderness - Right upper quadrant. ABSENT: distended, guarding, mass, organolmegaly, rebound Rectal exam: PRESENT: deferred Extremities exam: PRESENT: full ROM. ABSENT: calf tenderness, clubbing, pedal edema Neurological exam: PRESENT: alert, awake, oriented to person, oriented to place , oriented to time, oriented to situation, CN II-XII grossly intact. ABSENT: motor sensory deficit Psychiatric exam: PRESENT: appropriate affect, normal mood. ABSENT: homicidal ideation, suicidal ideation Skin exam: PRESENT: dry, intact, warm, other - Flushed. ABSENT: cyanosis, rash Results Laboratory Results: 03/25/17 06:52 Triglycerides 334 H Cholesterol 226.65 H LDL Cholesterol Direct 168 H VLDL Cholesterol 66.8 H HDL Cholesterol 43 03/25/17 06:52 CK-MB (CK-2) < 0.22 Troponin I < 0.012 Impressions: Chest X-Ray 03/24/17 20:16 IMPRESSION: NO ACUTE RADIOGRAPHIC FINDING IN THE CHEST. Abdomen Ultrasound 03/25/17 00:00 IMPRESSION: 1. No gallstones identified. 2. Hepatic steatosis. Chest CT 03/25/17 00:54 IMPRESSION: 1. No acute pulmonary process identified. 2. Hepatic steatosis. This exam was performed according to our departmental dose-optimization program, which includes automated exposure control, adjustment of the mA and/or kV according to patient size and/or use of iterative reconstruction technique. Assessment & Plan - Diagnosis (1) Chest pain Qualifiers: Chest pain type: unspecified Qualified Code(s): R07.9 - Chest pain, unspecified Is this a current diagnosis for this admission?: Yes Plan: Place patient on telemetry observation. Monitor for arrhythmia or ST segment changes. Initiate patient on metoprolol, Lipitor, oxygen, nitroglycerin, morphine, and aspirin. Serial cardiac enzymes every 6 hours. Testing lipid panel in the morning. Will obtain stress test tomorrow due to patient's risk factors and concerning history of chest pain. (2) Right upper quadrant pain Is this a current diagnosis for this admission?: Yes Plan: Obtain ultrasound of the abdomen consider HIDA scan if this is unrevealing. Patient has significant right upper quadrant tenderness (3) Hypothyroidism Qualifiers: Is this a current diagnosis for this admission?: Yes Plan: Check TSH (4) HTN (hypertension) Qualifiers: Hypertension type: unspecified Qualified Code(s): I10 - Essential (primary ) hypertension Is this a current diagnosis for this admission?: Yes (5) Insulin dependent diabetes mellitus Is this a current diagnosis for this admission?: Yes Plan: Check hemoglobin A1c continue insulin and sliding scale and Accu-Cheks (6) Obesity Qualifiers: Obesity type: due to excess calories Obesity classification: adult class 3 (BMI >= 40) Serious obesity comorbidity presence: with serious comorbidity Body mass index: BMI 40.0-44.9 Qualified Code(s): E66.01 - Morbid (severe) obesity due to excess calories; Z68.41 - Body mass index (BMI) 40.0-44.9, adult ; Z68.41 - Body mass index (BMI) 40.0-44.9, adult; Z68.41 - Body mass index (BMI ) 40.0-44.9, adult; Z68.41 - Body mass index (BMI) 40.0-44.9, adult Is this a current diagnosis for this admission?: Yes - Time Time Spent: 30 to 50 Minutes Medications reviewed and adjusted accordingly: Yes Anticipated discharge: Home
[2017-03-25] MEDS: ONDANSETRON HCL INJ/PF 4 MG/2 ML SDV IV PRN ×2 (09:10→15:24)
[2017-03-25] MEDS: MORPHINE SULFATE 10 MG/ML INJ IV PRN ×2 (09:10→15:25)
[2017-03-25] MEDS ORDERED: LEVOTHYROXINE SODIUM 0.15 MG TABLET PO ONE (09:45)
[2017-03-25] MEDS ORDERED: INSULIN DETEMIR 100 UNIT/ML 3 ML PEN SUBCUT SCH (10:00)
[2017-03-25] MEDS: INSULIN DETEMIR 100 UNIT/ML 3 ML PEN SUBCUT SCH ×2 (11:48→18:41)
[2017-03-25] MEDS: ASPIRIN 325 MG TABLET, ENT COATED PO SCH (11:50)
[2017-03-25] MEDS: LISINOPRIL 5 MG TABLET PO SCH (11:53)
[2017-03-25] MEDS: INSULIN LISPRO 100 UNIT/ML 3 ML VIAL SUBCUT PRN ×3 (11:59→23:17)
[2017-03-25 13:12] LABS: CREATINE KINASE MB < 0.22 ng/mL (<4.55); TROPONIN I < 0.012 ng/mL
--- NOTE | 2017-03-25 13:47 | DRAGON STRESS TEST REPORT ---
INTRAVENOUS LEXISCAN CARDIOLITE STRESS TEST USING SINGLE PHOTON EMMISION COMPUTERIZED TOMOGRAPHIC. DATE OF PROCEDURE: March 25, 2017 INDICATION : Chest pain CARDIAC RISK FACTORS: Diabetes, hypertension, dyslipidemia, family history of CAD RESTING EKG: Sinus rhythm with minor nonspecific ST-T changes. STRESS EKG: Downsloping ST segment depression with T-wave inversion noted of about 1-1.5 mm in anterior and lateral precordial chest leads noted with LexiScan bolus REASON FOR TERMINATION: Protocol. PROCEDURE REPORT: Baseline heart rate 107 beats per minute with blood pressure of 158/110. Patient had no significant complaints. Heart rate at 2 minutes post bolus 127 with a blood pressure of 176/111. 3 minutes post bolus heart rate 122 with blood pressure of 189/107. No significant EKG changes were noted. Patient had no significant complaints during the procedure or postprocedure. Patient injected with Aminophyllin 75 mg at 3 minutes or later after Lexiscan bolus. CONCLUSIONS: Normal EKG and hemodynamic response to IV LexiScan. NUCLEAR DATA: At rest the patient was given 14.65 millicuries of technetium 99 sestamibi injected intravenously. As per protocol rest gated SPECT images were obtained. Subsequently the patient was given intravenous LexiScan at a dose of 0.4 mg in 5 mL intravenously, followed by flush with normal saline. Subsequently the stress dose of 44.2 millicuries of technetium 99 sestamibi was injected intravenously. As per protocol stress gated images were obtained. NUCLEAR INTERPRETATION: Both raw and processed data were used for interpretation. Visual, qualitative, computer-generated quantitative data was used. There was good myocardial uptake of technetium compound. Motion artifact and soft tissue attenuations were noted. Increased visceral uptake was noted. No definitive areas of transient perfusion defect noted. No definitive areas of fixed perfusion defect or scars noted. EKG gated imaging showed LV EF at 65%, rest and stress gated EF similar visually. T. I D. ratio was 1.13. Lung heart ratio noted to be within normal limits 0.31. No significant extracardiac and abnormal radiotracer activities were noted. RV free wall uptake was noted to be WNL. A very small area of decreased uptake was noted in the distal inferior wall, which SDS score of 1 however there was no corresponding wall motion abnormalities. Also there was significant soft tissue attenuation noted, therefore could well be artifactual. Clinical correlation is therefore requested. IMPRESSION: Also refer to comments under nuclear interpretation. Also test results needs to be interpreted in the context of pretest probability. 1. There is no definitive scintigraphic evidence of LexiScan induced myocardial ischemia. 2. There is no definitive scintigraphic evidence of myocardial infarction/scar. 3. EKG gated imaging shows left ventricular ejection fraction of approximately 65%. 4. Patient did have positive EKG changes which is of some concern but no significant ischemia noted on perfusion imaging. Better test would have been a stress echo or a cardiac CTA in this patient. If patient has significant symptoms, could consider tertiary care referral for heart catheterization or at least a close cardiology follow-up with maximization of medical management. Clinical correlation requested as occasionally single vessel disease or balanced ischemia could be missed. In approximately 10% of the cases Lexiscan may not cause adequate vasodilatory stress. RECOMMENDATIONS: Aggressive risk factor modification, medical therapy. Close cardiology follow- up is recommended and if continues with chest pain, may consider tertiary care referral for cardiac CTA/cardiac catheterization. Clinical correlation with echocardiogram derived ejection fraction. Inability to exercise by itself can lead to increased cardiovascular event risks. Consider cardiology consultation and or follow-up if clinically indicated. I AM AVAILABLE FOR CARDIOLOGY CONSULTATION AND FOLLOWUP IF REQUESTED BY PMD Yandy Baird M.D., LUIS CARLOS Manager Of Software Development pattern data operator, Board certified in cardiovascular diseases, Nuclear cardiology, Echocardiography Cardiac CT and cardiac MRI Ph. [phone] [facility]ITAL[facility]
[2017-03-25] MEDS ORDERED: AMINOPHYLLINE INJ/PF 250 MG/10 ML SDV IV ONE (14:35)
[2017-03-25] MEDS ORDERED: REGADENOSON INJ 0.4 MG/5 ML DISP.SYRIN IV ONE (14:35)
[2017-03-25] MEDS ORDERED: PROMETHAZINE HCL INJ 25 MG/1 ML VIAL IM ONE (15:07)
[2017-03-25] MEDS ORDERED: INFLUENZA ADLT QUAD (36MOS+) 2017-18 VAC 0.5 ML SYR IM PRN (16:24)
--- NOTE | 2017-03-25 17:34 | PROGRESS NOTE E ---
Progress Note NAME: MIGUELINA CHRISTINE : 1985 AGE: 32Y DATE: 03/25/2017 ROOM: 416 SUBJECTIVE: The patient was seen twice today on rounds. The patient did have an episode of nausea as well as vomiting during her stress test. The patient has complained of dull right-sided chest pain which radiates into her right shoulder. The patient's cardiac enzymes have remained unremarkable. The patient has had no reported episodes of diarrhea but has remained nauseous throughout the day. Discussed the case with cardiology and will consult cardiology to see the patient on consult given her ST-depression. The patient does not voice any other concerns at this time. REVIEW OF SYSTEMS: Rest of review of systems is negative. MEDICATIONS: Medications have been reviewed. OBJECTIVE: GENERAL: The patient is a 32-year-old female who is awake and alert and oriented to person, place, time and situation. She is verbal and conversational, does not appear to be in any acute distress. VITAL SIGNS: Temperature is 98.3, pulse 74, respirations 20, blood pressure 157/86, oxygen saturation is 97% on room air. SKIN: Warm and dry. No rashes, not diaphoretic. HEENT: Pupils are equal, round, reactive to light and accommodation. Conjunctivae pink. There is no evidence of JVP. CVS: Heart is regular. There is no murmur or rub. CHEST: Clear, symmetrical and unlabored. ABDOMEN: Very tender in the right upper quadrant as well as epigastrium. Bowel sounds are present. EXTREMITIES: No clubbing, cyanosis or edema. PSYCHIATRIC: Appropriate affect, pleasant mood. DIAGNOSTIC DATA: Lab values are as follows: Hematology obtained on 03/24/2017: WBC is 7.6, hemoglobin 14.0, hematocrit 41.2, and platelet count is 366,000. Chemistries obtained on 03/25/2017: CK-MB is 0.22, troponin 0.012, glucose 278, triglycerides are 334, cholesterol is 226, LDL 168, VLDL 66.3, HDL 43. IMPRESSION AND PLAN: 1. CHEST PAIN. The patient did have an unremarkable stress test; however, given the patient's symptoms, will consult cardiology and obtain a repeat set of cardiac enzymes as well as EKG and follow. 2. RIGHT UPPER QUADRANT DISCOMFORT. The patient appears to have most symptoms postprandially. Will obtain HIDA scan and follow. 3. HYPERTRIGLYCERIDEMIA. Will obtain lipase given the patient's symptoms of profuse nausea in the setting of her elevated triglycerides. 4. DYSLIPIDEMIA. Have encouraged diet modification as well as added statin. 5. DIABETES MELLITUS TYPE 2 WITH INSULIN DEPENDENCY. Will encourage dietary compliance and continue with sliding scale coverage and follow. 6. HYPERTENSION. The patient's blood pressure is significantly elevated. Will continue the patient's home blood pressure medications and follow. 7. MORBID OBESITY WITH A BMI OF 43. Have encouraged weight reduction. DISPOSITION: The patient is a FULL CODE. Pending the patient's symptomatology and diagnostic findings, will re-evaluate in the a.m. TIME SPENT: On this followup including assessment, plan, physical examination, patient education, review of records, family meeting and specialist collaboration is 60 minutes. DICTATING PHYSICIAN: AARON PEARL NP [id number] PHY#: [id number] ID: [id number] JOB#: [id number] ACCT: [id number] cc: >
[2017-03-25 18:11] LABS: CREATINE KINASE MB < 0.22 ng/mL (<4.55); TROPONIN I < 0.012 ng/mL
--- NOTE | 2017-03-25 18:53 | EKG REPORT ---
SEVERITY:- ABNORMAL ECG - SINUS TACHYCARDIA NONSPECIFIC T ABNORMALITIES, LATERAL LEADS : Confirmed by: Andrew Gallego MD 25-Mar-2017 18:52:14
--- NOTE | 2017-03-25 18:53 | EKG REPORT ---
SEVERITY:- ABNORMAL ECG - SINUS RHYTHM NONSPECIFIC T ABNORMALITIES, LATERAL LEADS : Confirmed by: Andrew Gallego MD 25-Mar-2017 18:52:24
--- NOTE | 2017-03-25 20:44 | PDOC CONSULTATION ---
Consultation Consult Date: 03/25/17 Attending physician:: AARON PEARL Consult reason:: Chest pain History of Present Illness Admission Date/PCP: 03/25/17 02:05 Patient complains of: Chest pain History of Present Illness: MIGUELINA CHRISTINE is a 32 year old female with past medical history of insulin- dependent diabetes mellitus, hypothyroidism, hypertension, hyperlipidemia who presents emergency department complaint of chest pain. Patient was found to be hypertensive and tachycardic on presentation. She reports she is having right- sided chest pain that radiates to her right arm. Patient's initial troponin is negative but she is found to have some mild T-wave depression in lead I and aVL. She reports that she has been working out and eating better and has been having a weight loss of about 65 pounds. She reports that her blood sugars have been quite low between 30 and 50. She reports taking a glucose tablet prior to presenting to the emergency department. She reports she has been having some dizziness dizziness and nausea. She reports that she is essentially been unable to eat for the last several days due to her discomfort. This history was reviewed and confirmed. Patient denied any history of prior myocardial infarction, angina. She does describe history of snoring, daytime fatigue. Patient also describes history of polycystic ovary syndrome. Past Medical History Cardiac Medical History: Reports: Hyperlipidema, Hypertension Denies: Atrial Fibrillation, Congestive Heart Failure, Coronary Artery Disease, DVT, Myocardial Infarction, Peripheral Vascular Disease, Pulmonary Embolism, Heart Murmur Pulmonary Medical History: Denies: Asthma, Chronic Obstructive Pulmonary Disease (COPD) Neurological Medical History: Denies: Seizures Endocrine Medical History: Reports: Diabetes Mellitus Type 1, Hypothyroidism - 2009 Denies: Diabetes Mellitus Type 2, Hyperthyroidism Malignancy Medical History: Denies: Breast Cancer, Cervical Cancer, Ovarian Cancer GI Medical History: Denies: Cirrhosis, Gastroesophageal Reflux Disease, Hepatitis Musculoskeltal Medical History: Denies: Arthritis Psychiatric Medical History: Reports: Depression - post - , Post Traumatic Stress Disorder - NICU with daughter 2014 Denies: Bipolar Disorder Past Surgical History Past Surgical History: Reports: Section, Hysterectomy, Tubal Ligation, Other - Panniculectomy Denies: Appendectomy, Cholecystectomy, Coronary Artery Bypass Graft, Gastric Bypass Surgery, Herniorrhaphy, Mastectomy, Pacemaker, Tonsillectomy Social History Information Source: Patient Smoking Status: Never Smoker Frequency of Alcohol Use: None Hx Recreational Drug Use: No Drugs: None Hx Prescription Drug Abuse: No - Advance Directive Resuscitation Status: Full Code Surrogate healthcare decision maker:: Patient's is the surrogate decision-maker Family History Family History: CAD, DM, Other - Congenital heart defects and her children Parental Family History Reviewed: Yes Children Family History Reviewed: Yes Sibling(s) Family History Reviewed.: Yes Medication/Allergy Home Medications: Insulin Detemir [Levemir Flextouch] 35 units SUBCUT BID 07/02/16 Levothyroxine Sodium [Synthroid 0.15 mg Tablet] 150 mcg PO QAM 07/02/16 Insulin Aspart [Novolog Flexpen] 0 units SQ .PERSLIDINGSCALE 03/25/17 Aspirin [Aspirin 81 mg Chewable Tablet] 81 mg PO DAILY #1 pkg 03/26/17 Atorvastatin Calcium [Lipitor 40 mg Tablet] 40 mg PO QHS #30 tablet 03/26/17 Lisinopril [Prinivil 5 mg Tablet] 5 mg PO DAILY #30 tablet 03/26/17 Metoprolol Succinate [Toprol Xl 25 mg Tab.sr] 25 mg PO Q12 #30 tab.sr.24h Allergies/Adverse Reactions: iodine [Iodine] Allergy (Intermediate, Verified 03/24/17 19:00) latex [Latex] Allergy (Intermediate, Verified 03/24/17 19:00) Hives ceftriaxone sodium [From Rocephin] Allergy (Mild, Verified 03/24/17 19:00) nitrofurantoin [From Macrobid] Allergy (Mild, Verified 03/24/17 19:00) Penicillins Allergy (Mild, Verified 03/24/17 19:00) amoxicillin Allergy (Verified 03/24/17 19:00) metronidazole [From Flagyl] Allergy (Verified 03/24/17 19:00) penicillinase Allergy (Verified 03/24/17 19:00) Review of Systems Review of Systems: Please see history of present illness and past medical history as wall. Constitutional: No fever or chills reported. Head : No recent chronic headaches, recent head injury. Eyes: No recent eye pain, diplopia, redness, discharge, acute visual changes. Ears: No recent chronic ear pain, acute hearing loss, ear discharge. Oral cavity: No recent ulcerations, bleeding, oral cavity discomfort. Neck: No recent acute neck pain reported. Hematologic: No recent easy bruising or bleeding or hematologic malignancy reported. Lymphatic: No recent lymphatic malignancy, chronic lymphadenopathy reported yet Cardiovascular system review: See history of present illness. Respiratory system review: No recent chronic cough, hemoptysis, blood clots in the lungs reported. Mild Shortness of breath on exertion Gastrointestinal system review: Negative for any recent acute or chronic abdominal pain, hematemesis, melena, recent change in bowel habits. Genitourinary system review: No recent acute or chronic hematuria, flank pain, UTI etc. reported. Skin system review: Negative for any recent abnormal bruising, no rash, no pruritus reported. Neurologic: No prior history of strokes, mini strokes, seizure disorder. Psychologic: No history of major psychosis or major depression reported. Musculoskeletal: Minor aches and pains reported. No acute joint swelling reported. Endocrine: No recent polyuria, polydipsia, recent heat or cold intolerance. Physical Exam Vital Signs: Temp Pulse Resp BP Pulse Ox 98.2 F 99 18 165/88 H 100 03/25/17 19:39 03/25/17 19:39 03/25/17 19:39 03/25/17 19:39 03/25/17 19:39 Intake & Output 03/24/17 03/25/17 03/26/17 06:59 06:59 06:59 Intake Total 10 Balance 10 Exam: GENERAL: well-nourished and in no acute distress. Alert and oriented x3 HEAD: Atraumatic, normocephalic. EYES: Pupils equal round and reactive to light, extraocular movements intact, sclera anicteric, conjunctiva are normal. ENT: TMs normal, nares patent, oropharynx clear without exudates. Moist mucous membranes. No oral ulcerations or bleeding gums noted NECK: supple without lymphadenopathy. Trachea is central. No cervical or axillary lymphadenopathy noted. Carotids are 2+, JVD WNL LUNGS: Respiration seems nonlabored, no significant accessory muscle action noted. Breath sounds clear to auscultation bilaterally and equal noted. No wheezes rales or rhonchi noted. No significant dullness noted on percussion. CHEST: Palpation of the chest wall shows no significant chest wall tenderness. No other significant abnormalities noted. HEART: [employer]IC, No PSH, 1/6 NUNU aortic area, 1/6 tsai systolic murmur mitral area, no rubs, no gallops. ABDOMEN: Soft, no significant tenderness appreciated, normoactive bowel sounds. No guarding, no rebound. No rigidity noted . No masses appreciated. EXTREMITIES: Pedal pulses are 1-2+, no calf tenderness noted. No clubbing or cyanosis.trace pedal edema noted NEUROLOGICAL: Focused neurological exam showed no significant neurologic deficit. Normal speech, no focal weakness appreciated. PSYCH: Normal mood, normal affect. Judgment and insight within normal limits. SKIN: No significant ecchymosis, rash, ulcerations or signs of pruritus noted. MUSCULOSKELETAL EXAM: No significant joint swelling noted. Results Laboratory Results: 03/25/17 03/25/17 06:52 17:00 Triglycerides 334 H Cholesterol 226.65 H LDL Cholesterol Direct 168 H VLDL Cholesterol 66.8 H HDL Cholesterol 43 Lipase 97.4 03/25/17 03/25/17 03/25/17 06:52 12:17 17:00 CK-MB (CK-2) < 0.22 < 0.22 < 0.22 Troponin I < 0.012 < 0.012 < 0.012 EKG Comments: EKG is reviewed shows sinus tachycardia with minor nonspecific T-wave changes. Impressions: Chest X-Ray 03/24/17 20:16 IMPRESSION: NO ACUTE RADIOGRAPHIC FINDING IN THE CHEST. Abdomen Ultrasound 03/25/17 00:00 IMPRESSION: 1. No gallstones identified. 2. Hepatic steatosis. Chest CT 03/25/17 00:54 IMPRESSION: 1. No acute pulmonary process identified. 2. Hepatic steatosis. This exam was performed according to our departmental dose-optimization program, which includes automated exposure control, adjustment of the mA and/or kV according to patient size and/or use of iterative reconstruction technique. Assessment & Plan - Diagnosis (1) Chest pain Qualifiers: Chest pain type: unspecified Qualified Code(s): R07.9 - Chest pain, unspecified Is this a current diagnosis for this admission?: Yes (2) HTN (hypertension) Qualifiers: Hypertension type: unspecified Qualified Code(s): I10 - Essential (primary ) hypertension Is this a current diagnosis for this admission?: Yes (3) Obesity Qualifiers: Obesity type: due to excess calories Obesity classification: adult class 3 (BMI >= 40) Serious obesity comorbidity presence: with serious comorbidity Body mass index: BMI 40.0-44.9 Qualified Code(s): E66.01 - Morbid (severe) obesity due to excess calories; Z68.41 - Body mass index (BMI) 40.0-44.9, adult ; Z68.41 - Body mass index (BMI) 40.0-44.9, adult; Z68.41 - Body mass index (BMI ) 40.0-44.9, adult; Z68.41 - Body mass index (BMI) 40.0-44.9, adult Is this a current diagnosis for this admission?: Yes (4) Sleep disorder Is this a current diagnosis for this admission?: Yes (5) Hyperlipidemia Qualifiers: Hyperlipidemia type: unspecified Qualified Code(s): E78.5 - Hyperlipidemia , unspecified Is this a current diagnosis for this admission?: Yes (6) Diabetes Qualifiers: Diabetes mellitus type: type 2 Diabetes mellitus complication status: without complication Is this a current diagnosis for this admission?: Yes - Notes Notes: Chest pain: Patient has some typical and atypical features of chest pain. Cardiac enzymes so far has been negative. Electrocardiogram did not show any definitive ST segment changes. Multiple differential diagnoses exist in this patient. In descending order of probability this includes underlying coronary artery disease, gastroesophageal reflux, musculoskeletal pain, referred pain from elsewhere, anxiety panic disorder etc.Patient has significant cardiac risk factors, which indicates that there is a intermediate probability of chest discomfort coming from underlying CAD. Feel that it would need to be evaluated further. Discussed evaluation to assess this. In this regard risk benefits of nuclear stress test and other alternative processes were discussed in detail. The patient prefers to undergo nuclear stress test. The small risk of radiation , myocardial infarction, , cardiac arrhythmias, respiratory distress etc. were discussed. Patient understood the risks and gave informed consent. Nuclear stress test was therefore scheduled. For risk evaluation, patient is also being scheduled for a 2-D echocardiogram. Patient questions were answered. Patient did undergo a nuclear stress test. Patient had no significant complications. Diabetes: Recommend good control of blood sugar. However should avoid any hypoglycemia. Patient being expertly managed by primary care MEbony[facility]. Hyperlipidemia: LDL goal is less than 70. Recommend statin therapy at least intermediate or high dose, of high potency status. Periodic lipid panel and liver panel is indicated. Patient to report any significant muscle discomfort or other side effects. Sleep disorder breathing: Based on patient's symptoms, oropharyngeal exam, body habitus, comorbid diagnosis etc., there is high probability of underlying sleep apnea syndrome. Evaluation is recommended for sleep apnea as treatment of this condition if found is likely to benefit patient and reduce patient's future cardiovascular risk. Obesity: Discussed adverse effect of overweight/obesity on cardiovascular event rate, sleep apnea, diabetes and hypertension et cetera. Patient has been recommended weight loss. Patient advised in weight loss. In this regard portion control, substitution, calorie restriction and regular exercise plan discussed. Patient informed that I would be happy to help for outpatient management of weight loss. Risk associated with being overweight and obesity discussed. This included both mechanical and metabolic complications. Hypertension: Blood pressure goal in this patient is 135/85 or less. This was discussed with the patient. Currently blood pressure under reasonable control. Better medication for this patient are VAN inhibitor/ARB/beta jahaira etc. discussed side effects of uncontrolled hypertension and also severe hypotension. Patient was seen in the evening. Stress test results were discussed. Have recommended aggressive risk factor modification and medical management at this time. Have discussed that she will benefit from a sleep study as an outpatient. Will order a 2D echocardiogram. Patient has some baseline tachycardia, will therefore add beta-jahaira therapy. - Time Time Spent: 30 to 50 Minutes - CODE STATUS was discussed, patient remains full code. Surrogate decision-maker patient's . Multiple medical problems were addressed. Medications reviewed and adjusted accordingly: Yes
[2017-03-25] MEDS ORDERED: LANSOPRAZOLE 30 MG TAB.RAP.DR PO ONE (21:45)
[2017-03-25] MEDS ORDERED: ATORVASTATIN CALCIUM 40 MG TABLET PO SCH ×2 (22:00)
[2017-03-25] MEDS: METOPROLOL SUCCINATE 25 MG TAB.SR.24H PO SCH (22:40)
[2017-03-25] MEDS: NIFEDIPINE 30 MG TAB.ER.24 PO SCH (22:40)
[2017-03-26] MEDS ORDERED: LEVOTHYROXINE SODIUM 0.15 MG TABLET PO SCH (06:00)
[2017-03-26] MEDS ORDERED: LANSOPRAZOLE 30 MG TAB.RAP.DR PO SCH (06:00)
[2017-03-26 06:53] LABS: HEMATOCRIT 37.4 % (36.0-47.0); HEMOGLOBIN 12.6 g/dL (12.0-15.5); MEAN CORPUSCULAR HEMOGLOBIN 31.1 pg (27.0-33.4); MEAN CORPUSCULAR HGB CONC 33.8 g/dL (32.0-36.0); MEAN CORPUSCULAR VOLUME 92 fl (80-97); PLATELET COUNT 299 10^3/uL (150-450); RED BLOOD COUNT 4.06 10^6/uL (3.72-5.28); WHITE BLOOD COUNT 7.2 10^3/uL (4.0-10.5)
[2017-03-26 07:11] LABS: ANION GAP 9 (5-19); BLOOD UREA NITROGEN 15 mg/dL (7-20); CALCIUM 9.3 mg/dL (8.4-10.2); CARBON DIOXIDE 24 mmol/L (22-30); CHLORIDE 104 mmol/L (98-107); CREATINE KINASE 22 U/L (30-135); GLUCOSE 234 mg/dL (75-110); MAGNESIUM 1.8 mg/dL (1.6-2.3); POTASSIUM 4.3 mmol/L (3.6-5.0); SODIUM 137.4 mmol/L (137-145)
[2017-03-26] MEDS: METOPROLOL SUCCINATE 25 MG TAB.SR.24H PO SCH (09:22)
[2017-03-26] MEDS: NIFEDIPINE 30 MG TAB.ER.24 PO SCH (09:24)
[2017-03-26] MEDS: INSULIN LISPRO 100 UNIT/ML 3 ML VIAL SUBCUT PRN (09:25)
[2017-03-26] MEDS: INSULIN DETEMIR 100 UNIT/ML 3 ML PEN SUBCUT SCH (09:25)
[2017-03-26] MEDS: LISINOPRIL 5 MG TABLET PO SCH (09:26)
[2017-03-26] MEDS: ASPIRIN 325 MG TABLET, ENT COATED PO SCH (09:39)
--- NOTE | 2017-03-26 11:42 | PDOC PROGRESS REPORT ---
Subjective Progress Note for:: 03/26/17 Subjective:: Patient seems to be doing better with significant improvement. Pt is denying any chest arm or neck discomfort. Patient denying any PND, orthopnea. Patient denied any sustained palpitations, dizziness, syncope, near syncope. Patient denying any fever chills. Patient denying any other significant discomfort. Patient is maintaining sinus rhythm. Review of systems: Rest review of systems negative. Medications: Medications have been reviewed. Reason For Visit: CHEST PAIN Physical Exam Vital Signs: Temp Pulse Resp BP Pulse Ox 98.4 F 102 H 18 134/79 H 97 03/26/17 07:21 03/26/17 07:21 03/26/17 07:21 03/26/17 07:21 03/26/17 07:21 Intake & Output 03/25/17 03/26/17 03/27/17 06:59 06:59 06:59 Intake Total 1630 Balance 1630 Weight 105.3 kg 105.3 kg Exam: GENERAL: well-nourished and in no acute distress. Alert and oriented x3 HEAD: Atraumatic, normocephalic. EYES: Pupils equal round and reactive to light, extraocular movements intact, sclera anicteric, conjunctiva are normal. ENT: TMs normal, nares patent, oropharynx clear without exudates. Moist mucous membranes. No oral ulcerations or bleeding gums noted NECK: supple without lymphadenopathy. Trachea is central. No cervical or axillary lymphadenopathy noted. Carotids are 2+, JVD WNL LUNGS: Respiration seems nonlabored, no significant accessory muscle action noted. Breath sounds clear to auscultation bilaterally and equal noted. No wheezes rales or rhonchi noted. No significant dullness noted on percussion. CHEST: Palpation of the chest wall shows no significant chest wall tenderness. No other significant abnormalities noted. 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 ABDOMEN: Soft, no significant tenderness appreciated, normoactive bowel sounds. No guarding, no rebound. No rigidity noted . No masses appreciated. EXTREMITIES: Pedal pulses are 1-2+, no calf tenderness noted. No clubbing or cyanosis.trace pedal edema noted NEUROLOGICAL: Focused neurological exam showed no significant neurologic deficit. Normal speech, no focal weakness appreciated. PSYCH: Normal mood, normal affect. Judgment and insight within normal limits. SKIN: No significant ecchymosis, rash, ulcerations or signs of pruritus noted. MUSCULOSKELETAL EXAM: No significant joint swelling noted. Results Laboratory Results: 03/26/17 06:37 03/26/17 06:37 03/25/17 03/26/17 03/26/17 17:00 06:37 06:37 WBC 7.2 RBC 4.06 Hgb 12.6 Hct 37.4 MCV 92 MCH 31.1 MCHC 33.8 RDW 14.0 Plt Count 299 Sodium 137.4 Potassium 4.3 Chloride 104 Carbon Dioxide 24 Anion Gap 9 BUN 15 Creatinine 0.63 Est GFR ( Amer) > 60 Est GFR (Non-Af Amer) > 60 Glucose 234 H Calcium 9.3 Magnesium 1.8 Lipase 97.4 03/25/17 03/25/17 03/25/17 06:52 12:17 17:00 Creatine Kinase CK-MB (CK-2) < 0.22 < 0.22 < 0.22 Troponin I < 0.012 < 0.012 < 0.012 03/26/17 06:37 Creatine Kinase 22 L CK-MB (CK-2) Troponin I Impressions: Chest X-Ray 03/24/17 20:16 IMPRESSION: NO ACUTE RADIOGRAPHIC FINDING IN THE CHEST. Abdomen Ultrasound 03/25/17 00:00 IMPRESSION: 1. No gallstones identified. 2. Hepatic steatosis. Chest CT 03/25/17 00:54 IMPRESSION: 1. No acute pulmonary process identified. 2. Hepatic steatosis. This exam was performed according to our departmental dose-optimization program, which includes automated exposure control, adjustment of the mA and/or kV according to patient size and/or use of iterative reconstruction technique. Assessment & Plan - Diagnosis (1) Chest pain Qualifiers: Chest pain type: unspecified Qualified Code(s): R07.9 - Chest pain, unspecified Is this a current diagnosis for this admission?: Yes (2) Sleep disorder Is this a current diagnosis for this admission?: Yes (3) HTN (hypertension) Qualifiers: Hypertension type: unspecified Qualified Code(s): I10 - Essential (primary ) hypertension Is this a current diagnosis for this admission?: Yes (4) Insulin dependent diabetes mellitus Is this a current diagnosis for this admission?: Yes (5) Obesity Qualifiers: Obesity type: due to excess calories Obesity classification: adult class 3 (BMI >= 40) Serious obesity comorbidity presence: with serious comorbidity Body mass index: BMI 40.0-44.9 Qualified Code(s): E66.01 - Morbid (severe) obesity due to excess calories; Z68.41 - Body mass index (BMI) 40.0-44.9, adult ; Z68.41 - Body mass index (BMI) 40.0-44.9, adult; Z68.41 - Body mass index (BMI ) 40.0-44.9, adult; Z68.41 - Body mass index (BMI) 40.0-44.9, adult Is this a current diagnosis for this admission?: Yes - Notes Notes: Patient claims chest pain is resolved. This was evaluated with a nuclear stress test. Nuclear stress test was negative for any significant areas of ischemia or any significant areas of scar. The nuclear stress test is felt to be relatively low risk. Patient informed that occasionally single-vessel disease and balanced ischemia could be missed. Patient advised aggressive risk factor modification and medical therapy. Patient informed that further evaluation may become necessary if symptoms worsens or there is a development of new symptoms indicative of angina or angina equivalent symptom. 2D echocardiogram was obtained and reviewed results with the patient. Discussed need for continued statin therapy in view of presence of diabetes. Have also discussed need for undergoing a sleep study in view of history of PCO S, diabetes, hypertension, a thick neck and a lot of submental tissue that she has. This was explained to the patient. This is in spite of having any obvious snoring. Patient understood and he does want study. Patient's medications reviewed. Discharge plans reviewed. Patient being discharged by the hospitalist. Patient was informed that due to significant risk factors she would benefit from close cardiology follow-up.. - Time Time with patient: Greater than 35 minutes - CODE STATUS was discussed, patient remains full code. Surrogate decision-maker unchanged. Multiple medical problems were addressed. More than 50% of the time spent coordinating care, discussing management plans with involved caregivers. Management plans discussed with involved personnels. Medical decision making was of moderate to high complexity, patient's has multiple comorbidities. Significant time spent discussing results of stress test, echocardiogram and need for scheduling a sleep study. Medications reviewed and adjusted accordingly: Yes
[2017-03-26 13:35] VITALS: BP 174/92
--- NOTE | 2017-03-26 14:44 | DISCHARGE SUMMARY E ---
Discharge Summary NAME: MIGUELINA CHRISTINE : 1985 AGE: 32Y ADMITTED: 03/25/2017 DISCHARGED: 03/26/2017 CODE STATUS: FULL CODE. CONSULTATION BARBACK: Dr. Baird PRIMARY CARE PROVIDER: [facility] DISCHARGE DIAGNOSES: 1. Diabetes mellitus type 1 on type 2 with insulin dependency. 2. Hypertension. 3. Morbid obesity with a BMI of 43. 4. Dyslipidemia. 5. Hypertriglyceridemia. 6. Right upper quadrant discomfort and postprandial nausea. 7. Chest pain. 8. Hypothyroidism. 9. Hepatic steatosis. DISCHARGE MEDICATIONS: 1. Aspirin 81 mg p.o. daily. 2. Lipitor 40 mg p.o. at hour of sleep. 3. Novolog sliding scale coverage. 4. Levemir 35 units subcutaneous b.i.d. 5. Synthroid 150 mcg p.o. every a.m. 6. Lisinopril 5 mg p.o. daily. 7. Toprol XL 25 mg p.o. q.12 hours. DIET: Diabetic. ACTIVITY: As tolerated. DIAGNOSTICS: Lab values are as follow: Hematology obtained on 03/15/2017: WBCs are 7.2, hemoglobin is 12.6, hematocrit 37.4, platelet count is 299,000. Coagulation obtained on 03/24/2017: D-dimer is 0.27. Chemistry obtained on 03/26/2017: Sodium is 137, potassium 4.3, chloride is 104, carbon dioxide 24, BUN 15, creatinine is 0.63, glucose 234, calcium is 9.3, magnesium is 1.8, CK is 22, troponin is 0.014, lipase is 97, triglycerides are 334, cholesterol is 226, LDL 168, HDL is 43, bilirubin 0.3, AST 28, ALT is 51, alk phos 102, total protein is 7.0, albumin 4.1. Toxicology obtained on 03/25/2017 is tsai negative. Chest x-ray obtained on 03/24/2017 reveals no acute radiographic finding of the chest. Abdominal ultrasound obtained on 03/25/2017 reveals no gallstones identified with hepatic steatosis. Chest CT obtained on 03/25/2017 reveals no acute pulmonary process identified. Cardiolite stress test obtained on 03/25/2017 reveals no definitive evidence of myocardial ischemia. EF of 65%. No evidence of scarring. EKG obtained on 03/24/2017 reveals sinus tachycardia. EKG obtained on 03/25/2017 reveals sinus tachycardia. PHYSICAL EXAMINATION: GENERAL: On examination, the patient is a well-developed, well-nourished, 32-year-old female who is awake, alert, and oriented to person, place, time, and situation. She is verbal, conversational, and does not appear to be in any acute distress. VITAL SIGNS: Temperature 98.4, pulse 102, respirations 18, blood pressure 134/79, oxygen saturation is 97% on room air. SKIN: Warm and dry. No rash. She is not diaphoretic. HEENT: Pupils equal, round, reactive to light and accommodation. Conjunctivae are pink. No evidence of JVP. CARDIOVASCULAR: Heart is regular. There is no murmur or rub. CHEST: Clear, symmetrical, unlabored. ABDOMEN: Soft, obese, bowel sounds present. EXTREMITIES: No clubbing, cyanosis, or edema. PSYCHIATRIC: Appropriate affect. Pleasant mood. HISTORY OF PRESENT ILLNESS: The patient is 32-year-old female with a past medical history of polycystic ovarian syndrome and subsequent type 1 on type 2 diabetes. The patient presented to the emergency department with a chief complaint of chest pain. The patient was found to be hypertensive and tachycardiac on presentation. The patient reported right-sided chest pain which radiated into her right arm. The patient's initial troponin was negative. She was found to have some mild T-wave depression in lead 1 and AVL. The patient reports that she had been working out and eating better, and has had a weight loss of about 65 pounds. The patient reports that her blood sugars have been quite low, between the 30s and 50s. The patient also reports taking a glucose tablet prior to coming to the emergency department. The patient has been having some dizziness and nausea. The patient said she had been unable to eat for the last several days due to her discomfort. Upon presentation in the emergency department, the patient was found to have an unremarkable set of cardiac enzymes, and the patient was referred to the hospitalist for admission and management. HOSPITAL COURSE: The patient was admitted to continuous telemetry unit. Serial cardiac enzymes were obtained all of which were non-suggestive. The patient had no acute EKG changes and no evidence on the playground monitor. The patient was seen by Dr. Baird with cardiology and the patient had no overt evidence of ischemia on cardiac stress test; however, the patient did have evidence of EKG changes. The patient has elected to proceed with the rest of her workup on an outpatient basis given that she does have children with special needs and needs to be out of the hospital. The patient was directed to come back to the hospital should any symptoms reoccur and the patient is in agreeance with this plan. With discussion of the patient, it appears that her symptoms are significantly postprandial and radiate into her chest. The patient also has nausea associated with it, therefore, do feel a portion of the patient's symptoms are GI in etiology. The patient is agreeable to outpatient evaluation with Dr. Campbell and a referral has been made. DISCHARGE PLANNIN. The patient will follow up with Dr. Baird within 1 week for hospital followup for outpatient echocardiogram and further evaluation. 2. The patient will follow up with Dr. Campbell after getting a referral from her primary care provider for hospital followup. Time spent on this discharge including assessment, plan, physical examination, patient education, family meeting, review of records is 35 minutes. DICTATING PHYSICIAN: AARON PEARL NP [id number] PHY#: [id number] ID: [id number] JOB#: [id number] ACCT: [id number] cc:AARON PEARL NP, CECILIA M.D. >
== END 2017-03-26 13:45 | disposition home or self-care (01) ==
LOC: ER 18:59 → EH 03-25 02:05 → 4W 03-25 14:25
PROVIDERS: ADMIT Family Medicine; ATTEND Family Medicine
DX: R07.89 Other chest pain (principal); E10.9 Type 1 diabetes mellitus without complications; I10 Essential (primary) hypertension; E66.01 Morbid (severe) obesity due to excess calories; E78.5 Hyperlipidemia, unspecified; E78.1 Pure hyperglyceridemia; R10.11 Right upper quadrant pain; R11.0 Nausea; E03.9 Hypothyroidism, unspecified; K76.0 Fatty (change of) liver, not elsewhere classified; I49.5 Sick sinus syndrome; G47.9 Sleep disorder, unspecified; R55 Syncope and collapse; E28.2 Polycystic ovarian syndrome; Z79.4 Long term (current) use of insulin; Z68.41 Body mass index [BMI] 40.0-44.9, adult; Z90.710 Acquired absence of both cervix and uterus; Z98.51 Tubal ligation status; Z98.890 Other specified postprocedural states; Z79.899 Other long term (current) drug therapy; Z82.49 Family history of ischemic heart disease and other diseases of the circulatory system; Z83.3 Family history of diabetes mellitus; Z82.79 Family history of other congenital malformations, deformations and chromosomal abnormalities
CPT/HCPCS: 93005 ×3; 99285; 96361; 96374; 96375; 36415 ×3; 82553 ×2; 82962 ×2; 82550 ×2; 83690; 83735; 84443; 85025; 85027; 80048; 80053; 84484 ×2; 80307; 85379; 80061; 93017; 71045; 76705; 78452; 71250; 93010 ×2; G0378 ×3; A9500; J2785; J3490 ×9; J1815 ×3; J2270; J2060; J2405; J7030 ×2; S0028; J0280; Q9969